=== PATIENT | female | born 1960 | race Caucasian/White ===

== ENCOUNTER 2020-07-07 10:15 | Outpatient (REF) | payer BC, SELFPAY ==
[2020-07-07 11:07] LABS: MANUAL DIFF FLAG NO
[2020-07-07 11:11] LABS: Basophils Absolute Auto 0.1 X10*3/uL (0.0-0.2); Basophils Percent Auto 0.8 % (0-2); Eosinophils Absolute Auto 0.1 X10*3/uL (0.0-0.4); Eosinophils Percent Auto 2.4 % (0-4); Hematocrit 43.8 % (37-47); Hemoglobin 14.8 g/dl (12.0-16.0); Imm Gran Abs Auto 0.01 X10*3/uL (0.00-0.03); Imm Gran Pct Auto 0.2 % (0.0-0.4); Lymphocytes Percent Auto 33.6 % (20-40); Mean Corpuscular HGB Conc 33.8 g/dl (31.0-35.0); Mean Corpuscular Volume 94.8 fL (80-98); Mean Platelet Volume 9.9 fL (9.4-12.3); Monocytes Absolute Auto 0.4 X10*3/uL (0.1-1.2); Monocytes Percent Auto 7.5 % (2-11); Neutrophils Absolute Auto 3.3 X10*3/uL (2.0-8.3); Neutrophils Percent Auto 55.5 % (45-73); Platelet Count 256 X10*3/uL (160-400); Red Blood Count 4.62 X10*6/uL (4.20-5.50); Red Cell Distribution Width 12.2 % (11.0-16.0); White Blood Count 5.9 X10*3/uL (4.8-10.8)
[2020-07-07 11:23] LABS: Alanine Aminotransferase 24 U/L (0-31); Albumin Level 3.9 g/dL (3.5-5.0); Alkaline Phosphatase 69 U/L (39-117); Anion Gap 14 (12-20); Aspartate Amino Transferase 15 U/L (5-31); Bilirubin Total 0.4 mg/dL (0.0-1.0); Blood Urea Nitrogen 21 mg/dL (9-16); Calcium 9.1 mg/dL (8.4-10.2); Carbon Dioxide 29 mmol/L (22-29); Chloride 103 mmol/L (96-108); Cholesterol 192 mg/dL; Estimated Glomerular Filt Rate > 60; Glucose Fasting 98 mg/dL (60-99); HDL Cholesterol 59 mg/dL; LDL Cholesterol Calculated 121 mg/dl; Potassium 4.6 mmol/l (3.3-5.1); Sodium 141 mmol/L (135-145); Total Protein 6.8 g/dL (6.5-8.0); Triglycerides 60 mg/dL
[2020-07-07 11:47] LABS: T4 Thyroxine 6.9 ug/dL (4.5-12.0); Thyroid Stimulating Hormone 2.05 uIU/mL (0.32-4.0); Vitamin D 25-OH Total 41.9 ng/mL (>30)
[2020-07-07 12:07] LABS: Folate 18.2 ng/mL (> or = 4.0); Vitamin B12 587 pg/mL (200-900)
== END 2020-07-07 10:16 | disposition home or self-care (01) ==
LOC: HO.LAB 10:15
PROVIDERS: PCP Internal Medicine; Visit Provider Internal Medicine
DX: Z00.00 Encounter for general adult medical examination without abnormal findings (principal); I10 Essential (primary) hypertension; E66.01 Morbid (severe) obesity due to excess calories; F41.9 Anxiety disorder, unspecified; K21.9 Gastro-esophageal reflux disease without esophagitis
CPT/HCPCS: 36415; 80053; 80061; 82306; 82607; 82746; 84436; 84443; 85025

== ENCOUNTER 2020-08-02 10:44 | Outpatient (REF) | payer BC, SELFPAY ==
--- NOTE | 2020-08-02 | MM_ITS ---
EXAMINATION: MM SCREENING DIGITAL BREAST TOMOSYNTHESIS, BILATERAL CLINICAL INFORMATION: Screening. Asymptomatic. The lifetime risk of breast cancer based on the Tyrer-Cuzick Model is 8%. COMPARISON: Mammography: 07/28/2019, 07/15/2018, 06/18/2017 TECHNIQUE: Digital breast tomosynthesis is performed in both the craniocaudal and mediolateral oblique views along with computer-aided detection (CAD). Synthesized 2D images are generated from the tomosynthesis. Additional right CC and right MLO views are provided. FINDINGS: The breasts are almost entirely fatty (ACR BI-RADS breast composition Category a). There are no significant masses, abnormal calcifications, or other abnormalities. Background stromal densities are stable. The axilla and skin contours are unremarkable. MM/MM tomosynthesis screening BI IMPRESSION: No mammographic evidence of malignancy. ASSESSMENT: BI-RADS 1: Negative RECOMMENDATION: Routine annual mammography screening. This patient's information was entered into a reminder system with a target due date for their next mammogram.
== END 2020-08-02 10:45 | disposition home or self-care (01) ==
LOC: HO.MAMMO 10:44
PROVIDERS: PCP Internal Medicine; Visit Provider Internal Medicine
DX: Z12.31 Encounter for screening mammogram for malignant neoplasm of breast (principal)
CPT/HCPCS: 77063; 77067

== ENCOUNTER 2021-06-05 13:26 | Outpatient (REF) | payer BC, SELFPAY ==
--- NOTE | ~2021-06-05 | XR_ITS ---
EXAMINATION: XR CERVICAL SPINE CLINICAL INFORMATION: Cervical radiculopathy COMPARISON: None TECHNIQUE: 3 views of the cervical spine were obtained. FINDINGS: There is mild anterior subluxation of C4 with respect to C5 measuring 2 mm. Bone alignment is otherwise normal. There is degenerative spondylosis from C4-C5 to C6-C7. There is degenerative disc disease at C5-C6 and C6-C7. Prevertebral soft tissues are normal. XR/XR cervical spine 3V IMPRESSION: Degenerative changes.
== END 2021-06-05 13:27 | disposition home or self-care (01) ==
LOC: HO.HMGCX 13:26
PROVIDERS: PCP Internal Medicine; Visit Provider Internal Medicine
DX: M54.12 Radiculopathy, cervical region (principal)
CPT/HCPCS: 72040

== ENCOUNTER → 2021-06-09 13:09 | Outpatient (BNVA) | payer BC, SELFPAY | PROVIDERS: Visit Provider Advanced Practice Midwife ==

== ENCOUNTER 2021-08-05 08:39 | Outpatient (REF) | payer BC, SELFPAY ==
[2021-08-05 11:26] LABS: MANUAL DIFF FLAG NO
[2021-08-05 11:33] LABS: Basophils Percent Auto 0.2 % (0-2); Eosinophils Absolute Auto 0.2 X10*3/uL (0.0-0.4); Eosinophils Percent Auto 2.4 % (0-4); Hematocrit 38.9 % (37.0-47.0); Hemoglobin 13.1 g/dl (12.0-16.0); Imm Gran Abs Auto 0.03 X10*3/uL (0.00-0.03); Imm Gran Pct Auto 0.3 % (0.0-0.4); Lymphocytes Absolute Auto 1.2 X10*3/uL (1.2-4.9); Lymphocytes Percent Auto 13.6 % (20-40); Mean Corpuscular HGB Conc 33.7 g/dl (31.0-35.0); Mean Corpuscular Hemoglobin 31.8 pg (27.0-33.0); Mean Corpuscular Volume 94.4 fL (80.0-98.0); Mean Platelet Volume 10.2 fL (9.4-12.3); Monocytes Absolute Auto 0.5 X10*3/uL (0.1-1.2); Monocytes Percent Auto 6.2 % (2-11); Neutrophils Absolute Auto 6.6 x10*3/uL (2.0-8.3); Neutrophils Percent Auto 77.3 % (45-73); Platelet Count 257 X10*3/uL (160-400); Red Blood Count 4.12 X10*6/uL (4.20-5.50); Red Cell Distribution Width 12.7 % (11.0-16.0); White Blood Count 8.6 X10*3/uL (4.8-10.8)
[2021-08-05 11:52] LABS: Estimated Average Glucose 117 mg/dL; Hemoglobin A1c % 5.7 %
[2021-08-05 12:15] LABS: Alanine Aminotransferase 23 U/L (0-31); Alkaline Phosphatase 64 U/L (39-117); Anion Gap 14 (12-20); Aspartate Amino Transferase 20 U/L (5-31); Bilirubin Total 0.3 mg/dL (0.0-1.0); Blood Urea Nitrogen 20 mg/dL (9-16); Calcium 9.2 mg/dL (8.4-10.2); Carbon Dioxide 27 mmol/L (22-29); Chloride 103 mmol/L (96-108); Cholesterol 189 mg/dL; Estimated Glomerular Filt Rate 56; Free T4 (Free Thyroxine) 1.01 ng/dL (0.71-1.85); Glucose Random 98 mg/dL (60-115); HDL Cholesterol 56 mg/dL; LDL Cholesterol Calculated 122 mg/dl; Sodium 140 mmol/L (135-145); Thyroid Stimulating Hormone 1.13 uIU/mL (0.32-4.0); Total Protein 7.2 g/dL (6.5-8.0); Triglycerides 58 mg/dL; Vitamin D 25-OH Total 40.2 ng/mL (>30)
[2021-08-05 12:19] LABS: Folate > 20.0 ng/mL (> or = 4.0); Vitamin B12 639 pg/mL (200-900)
== END 2021-08-05 08:40 | disposition home or self-care (01) ==
LOC: HO.HMGCLDS 08:39
PROVIDERS: PCP Internal Medicine; Visit Provider Internal Medicine
DX: R73.01 Impaired fasting glucose (principal); I10 Essential (primary) hypertension; E78.00 Pure hypercholesterolemia, unspecified; K21.9 Gastro-esophageal reflux disease without esophagitis
CPT/HCPCS: 36415; 80053; 80061; 82306; 82607; 82746; 83036; 84439; 84443; 85025

== ENCOUNTER 2021-08-22 07:59 | Outpatient (REF) | payer BC, SELFPAY ==
--- NOTE | ~2021-08-22 | MM_ITS ---
EXAMINATION: MM SCREENING DIGITAL BREAST TOMOSYNTHESIS, BILATERAL CLINICAL INFORMATION: Screening. Asymptomatic. The lifetime risk of breast cancer based on the Tyrer-Cuzick Model is 8%. COMPARISON: Mammography: 08/02/2020, 07/28/2019, 07/15/2018 TECHNIQUE: Digital breast tomosynthesis is performed in both the craniocaudal and mediolateral oblique views along with computer-aided detection (CAD). Synthesized 2D images are generated from the tomosynthesis. Additional bilateral CC views are provided. FINDINGS: The breasts are almost entirely fatty (ACR BI-RADS breast composition Category a). There are no significant masses, abnormal calcifications, or other abnormalities. Background stromal and fibroglandular densities are stable. No developing density or interval architectural changes. The axilla and skin contours are unremarkable. MM/MM tomosynthesis screening BI IMPRESSION: No mammographic evidence of malignancy. ASSESSMENT: BI-RADS 1: Negative RECOMMENDATION: Routine annual mammography screening. This patient's information was entered into a reminder system with a target due date for their next mammogram.
== END 2021-08-22 08:00 | disposition home or self-care (01) ==
LOC: HO.MAMMO 07:59
PROVIDERS: PCP Internal Medicine; Visit Provider Internal Medicine
DX: Z12.31 Encounter for screening mammogram for malignant neoplasm of breast (principal)
CPT/HCPCS: 77063; 77067

== ENCOUNTER 2021-10-21 16:00 | Outpatient (RCR) | payer BC, SELFPAY ==
--- NOTE | 2021-07-07 20:37 | MHC.PT.EP ---
[facility] [place] Office [place] Office [place] Office [address] [phone] F: [phone] F: [phone] F: [phone] F: [phone] Physical Therapy Plan of Care Date of Evaluation: Date of Surgery: Diagnosis: Cervical Radiculopathy Assessment: Pt is a 61 y/o female referred to PT for eval and treat of cervical radiculopathy resulting in decreased tolerance for laying on her L side, looking L, lifting objects of weight from the ground, reading for duration and disturbed sleep secondary to L sided cervical radicular Sx, decreased cervical strength and ROM, increased L sided cervical tissue tension, forward head cervical posture, and pain. Pt is deemed an appropriate candidate to receive skilled PT in order to address her physical limitations to improve her functional ability. Frequency and Duration: The patient will be seen 2 x / wk x 5 wks. Short Term Goals: initiate HEP improve baseline pain to < 4/10, initial 5-7/10 [place] Operator Goals: I with HEP. Full symmetrical cervical ROM Pt will no longer be disturbed of sleep d/t cervical pain. Pt will be able to lift objects of weight from the ground with managed Sx. Treatment Plan: Modalities to reduce pain, spasms and effusion. Manual therapy to restore motion and function. Therapeutic exercise to improve strength and flexibility. Neuromuscular re-education for posture and balance. Therapeutic activities to return to functional activities of daily living. Electronically signed by: Titi Kam PT. Please sign and return to therapist. Thank you for your referral.
--- NOTE | 2021-11-02 12:12 | MHC.PT.DC ---
[facility] [place] Office [place] Office [place] Office [address] [place]a Paulino [address] [phone] F: [phone] F: [phone] F: [phone] F: [phone] Physical Therapy Discharge Report Diagnosis: Cervical Radiculopathy Date of Surgery: Date of Evaluation: 07/07/21 Date of Discharge: 11/02/21 Treatments to Date: 16 Cancellations to Date: No Shows to Date: Discharge Status: Improved Function Independent with HEP Discharge Summary: Stella has been an active participant in her therapy in the clinic and though she persists with some difficulty lifting heavy objects from the floor she has met most of her therapeutic goals, is improved of her pain, I with her home program and in agreement with DC. NDI outcome measure improved from 18% to 6%. Electronically signed by: Titi Kam PT. Please sign and return to therapist. Thank you for your referral.
== END 2021-11-02 12:12 | disposition home or self-care (01) ==
LOC: HO.PTCHIC 16:00
PROVIDERS: PCP Internal Medicine; Visit Provider Internal Medicine
DX: M54.12 Radiculopathy, cervical region (principal)
CPT/HCPCS: 97012; 97014; 97110; 97140; 97161

== ENCOUNTER 2021-10-29 07:20 | Outpatient (REF) | payer BC, SELFPAY ==
--- NOTE | ~2021-10-29 | MR_ITS ---
EXAMINATION: MR CERVICAL SPINE WITHOUT CONTRAST CLINICAL INFORMATION: Left arm radiculopathy. Neck pain. COMPARISON: X-ray dated 06/05/2021. TECHNIQUE: MRI of the cervical spine was obtained using routine sequences without contrast. FINDINGS: VERTEBRAL BODIES AND PARASPINAL SOFT TISSUES: There is a mild reversal of the normal cervical lordosis. Mild anterior subluxation present at the C2-C3, C3-C4, and C4-C5 levels. There are no compression fractures. The paraspinal soft tissues appear normal. The vertebral artery flow-voids are maintained. There is significant disc space narrowing at the C5-C6 and C6-C7 levels where there is a mild retrosubluxation as well. Mild rightward curvature of the cervical spine evident. Mild left lateral endplate edematous changes noted at the C4-C5 level. The lung apices are clear. CERVICOMEDULLARY JUNCTION AND VISUALIZED POSTERIOR FOSSA: The craniovertebral junction and imaged portions of the brain parenchyma appear normal. No cord signal abnormality or syrinx is visible. SPINAL LEVELS: C2-C3: Mild anterolisthesis. No focal disc protrusion or central canal stenosis. Hnrc-ps-xffpbvcd facet arthropathy without foraminal encroachment. C3-C4: Mild anterolisthesis and disc bulge without central canal stenosis. Uolo-fe-eeemxrgr right foraminal narrowing and small posterolateral disc protrusion. C4-C5: Mild anterolisthesis and disc-osteophyte complex with mild central canal stenosis and moderate left foraminal narrowing. Ldvx-vk-ncnxufvu right foraminal encroachment. C5-C6: Disc-osteophyte complex with mild central canal stenosis and significant bilateral foraminal encroachment. C6-C7: Retrosubluxation and broad-based disc-osteophyte complex with mild central canal stenosis and severe foraminal narrowing, worse on the right side. C7-T1: Uncovertebral joint spurring and facet arthropathy with significant right foraminal encroachment. No central canal stenosis. MR/MR cervical spine wo con IMPRESSION: Kiup-bj-immvajva multilevel cervical spondylosis with mild subluxations. Focal right posterolateral disc protrusion at the C3-C4 level with nrnk-ii-nrrjukvy right foraminal encroachment. Mild central canal stenosis and moderate left foraminal narrowing at the C4-C5 level. Mild central canal stenosis and significant bilateral foraminal narrowing at C5-C6. Disc-osteophyte complex with mild central canal stenosis and severe foraminal narrowing at the C6-C7 level. Significant right foraminal encroachment due to osseous spurring at the C7-T1 level.
== END 2021-10-29 07:21 | disposition home or self-care (01) ==
LOC: HO.MRI 07:20
PROVIDERS: PCP Internal Medicine; Visit Provider Internal Medicine
DX: M54.12 Radiculopathy, cervical region (principal)
CPT/HCPCS: 72141

== ENCOUNTER 2022-04-12 13:35 | Outpatient (REF) | payer BC, SELFPAY ==
[2022-04-12 17:10] LABS: Alanine Aminotransferase 22 U/L (0-31); Albumin Level 4.1 g/dL (3.5-5.0); Alkaline Phosphatase 69 U/L (39-117); Anion Gap 15 (12-20); Aspartate Amino Transferase 17 U/L (5-31); Bilirubin Total 0.3 mg/dL (0.0-1.0); Blood Urea Nitrogen 16 mg/dL (9-16); Calcium 9.5 mg/dL (8.4-10.2); Carbon Dioxide 25 mmol/L (22-29); Chloride 101 mmol/L (96-108); Estimated Glomerular Filt Rate > 60; Glucose Random 87 mg/dL (60-115); Potassium 3.6 mmol/L (3.3-5.1); Sodium 137 mmol/L (135-145); Total Protein 6.7 g/dL (6.5-8.0)
[2022-04-12 17:15] LABS: Estimated Average Glucose 108 mg/dL; Hemoglobin A1c % 5.4 %
== END 2022-04-12 13:36 | disposition home or self-care (01) ==
LOC: HO.HMGCLDS 13:35
PROVIDERS: PCP Internal Medicine; Visit Provider Internal Medicine
DX: K21.9 Gastro-esophageal reflux disease without esophagitis (principal)
CPT/HCPCS: 36415; 80053; 83036

== ENCOUNTER 2022-08-05 13:59 | Outpatient (REF) | payer BC, SELFPAY ==
[2022-08-09 23:04] LABS: HPV mRNA E6/E7 rflx Not Detected (Not Detected)
== END 2022-08-05 14:00 | disposition home or self-care (01) ==
LOC: HO.LNP 13:59
PROVIDERS: PCP Internal Medicine; Visit Provider Advanced Practice Midwife
DX: Z01.419 Encounter for gynecological examination (general) (routine) without abnormal findings (principal)
CPT/HCPCS: 87624; 88142

== ENCOUNTER 2022-09-04 09:51 | Outpatient (REF) | payer BC, SELFPAY ==
--- NOTE | ~2022-09-04 | MM_ITS ---
EXAMINATION: MM SCREENING DIGITAL BREAST TOMOSYNTHESIS, BILATERAL CLINICAL INFORMATION: Screening. Asymptomatic. The lifetime risk of breast cancer based on the Tyrer-Cuzick Model is 8%. COMPARISON: Mammography: 08/11/2021, 08/02/2020, 07/28/2019 TECHNIQUE: Digital breast tomosynthesis is performed in both the craniocaudal and mediolateral oblique views along with computer-aided detection (CAD). Synthesized 2D images are generated from the tomosynthesis. Additional right MLO and left CC views are provided. FINDINGS: The breasts are almost entirely fatty (ACR BI-RADS breast composition Category a). There are no significant masses, abnormal calcifications, or other abnormalities. Stromal markings are similar to prior studies and there is no developing density or architectural abnormality. The axilla and skin contours are unremarkable. No significant changes. MM/MM tomosynthesis screening BI IMPRESSION: No mammographic evidence of malignancy. ASSESSMENT: BI-RADS 1: Negative RECOMMENDATION: Routine annual mammography screening. This patient's information was entered into a reminder system with a target due date for their next mammogram.
== END 2022-09-04 09:52 | disposition home or self-care (01) ==
LOC: HO.MAMMO 09:51
PROVIDERS: PCP Internal Medicine; Visit Provider Internal Medicine
DX: Z12.31 Encounter for screening mammogram for malignant neoplasm of breast (principal)
CPT/HCPCS: 77063; 77067

== ENCOUNTER 2023-03-19 09:25 | Outpatient (REF) | payer BC, SELFPAY ==
[2023-03-19 09:45] LABS: MANUAL DIFF FLAG NO
[2023-03-19 10:31] LABS: Basophils Absolute Auto 0.1 X10*3/uL (0.0-0.2); Basophils Percent Auto 0.8 % (0-2); Eosinophils Absolute Auto 0.2 X10*3/uL (0.0-0.4); Eosinophils Percent Auto 2.5 % (0-4); Hematocrit 41.1 % (37.0-47.0); Hemoglobin 14.1 g/dl (12.0-16.0); Imm Gran Abs Auto 0.01 X10*3/uL (0.00-0.03); Imm Gran Pct Auto 0.2 % (0.0-0.4); Lymphocytes Absolute Auto 1.9 X10*3/uL (1.2-4.9); Lymphocytes Percent Auto 32.1 % (20-40); Mean Corpuscular HGB Conc 34.3 g/dl (31.0-35.0); Mean Corpuscular Hemoglobin 32.6 pg (27.0-33.0); Mean Corpuscular Volume 94.9 fL (80.0-98.0); Mean Platelet Volume 9.6 fL (9.4-12.3); Monocytes Absolute Auto 0.5 X10*3/uL (0.1-1.2); Monocytes Percent Auto 8.3 % (2-11); Neutrophils Absolute Auto 3.4 x10*3/uL (2.0-8.3); Neutrophils Percent Auto 56.1 % (45-73); Platelet Count 278 X10*3/uL (160-400); Red Blood Count 4.33 X10*6/uL (4.20-5.50); Red Cell Distribution Width 12.5 % (11.0-16.0)
[2023-03-19 11:22] LABS: Alanine Aminotransferase 17 U/L (0-31); Albumin Level 4.1 g/dL (3.5-5.0); Alkaline Phosphatase 58 U/L (39-117); Anion Gap 12 (12-20); Aspartate Amino Transferase 17 U/L (5-31); Bilirubin Total 0.5 mg/dL (0.0-1.0); Blood Urea Nitrogen 14 mg/dL (9-16); Calcium 9.6 mg/dL (8.4-10.2); Carbon Dioxide 26 mmol/L (22-29); Chloride 105 mmol/L (96-108); Cholesterol 183 mg/dL (<200); Estimated Glomerular Filt Rate > 60; Glucose Random 111 mg/dL (60-115); HDL Cholesterol 61 mg/dL (>40); LDL Cholesterol Calculated 108 mg/dL (<100); Potassium 3.4 mmol/L (3.3-5.1); Sodium 140 mmol/L (135-145); Triglycerides 72 mg/dL (<150)
[2023-03-19 11:39] LABS: Free T4 (Free Thyroxine) 0.93 ng/dL (0.71-1.85); Thyroid Stimulating Hormone 0.59 uIU/mL (0.32-4.0)
[2023-03-19 11:46] LABS: Vitamin B12 893 pg/mL (200-900)
[2023-03-19 12:08] LABS: Estimated Average Glucose 105 mg/dL; Hemoglobin A1c % 5.3 % (<6.0)
== END 2023-03-19 09:26 | disposition home or self-care (01) ==
LOC: HO.LAB 09:25
PROVIDERS: PCP Internal Medicine; Visit Provider Internal Medicine
DX: K21.9 Gastro-esophageal reflux disease without esophagitis (principal); R73.01 Impaired fasting glucose; I10 Essential (primary) hypertension; E78.00 Pure hypercholesterolemia, unspecified; E55.9 Vitamin D deficiency, unspecified
CPT/HCPCS: 36415; 80053; 80061; 82306; 82607; 82746; 83036; 84439; 84443; 85025

== ENCOUNTER 2023-03-21 15:40 | Outpatient (AMB) | payer BC, SELFPAY ==
--- NOTE | 2023-03-21 15:50 | A.OFFPC_ITS ---
Vital Signs 03/21/23 15:52 Height 5 ft 2 in Weight 100.698 kg BMI 40.6 BP 124/76 Blood Pressure Location Lt brachial Position Sitting Pulse 78 Pulse Source Pulse Oximeter Pulse Oximetry (%) 98 Oxygen Delivery Method Room Air Intake Visit Reasons: cologuard pos, HTN Allergies oxycodone [From PERCOCET] Allergy (Unknown, Verified 03/21/23 15:53) DID NOT LIKE THE WAY IT MADE HER FEEL Tobacco use date assessed: 08/02/22 Dental Screening Dental Screen Date: 03/21/23 Did you have a dental visit in the last 12 months?: Yes Did you have a dental problem in the last 6 months where you did not have access to dental care?: No Was dental information given to patient?: Patient has dentist HPI cologuard pos, HTN HPI Details 62-year-old obese female with hypertensi on, impaired glucose tolerance GERD Lyn anxiety disorder last seen in December 2022 concern about the positive colorectal cancer screening test using Cologuard test and was advised to 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 Patient is here for follow-up. Mammograms up-to-date [facility] Medical History (Updated 03/21/23 @ 16:01 by Lise Chaudhry MD) Breast cancer screening by mammogram Colonoscopy refused Colon cancer screening GERD (gastroesophageal reflux disease) Osteoarthritis, knee Allergic rhinitis Skin cancer Impaired fasting glucose Obesity Hypertension Surgical History History of elbow surgery History of cholecystectomy History of tubal ligation Family History (Updated 01/04/23 @ 13:47 by Vicki Gillis CMA) Father Heart disease Hypertension CVD (cardiovascular disease) Mother Hypertension Sister Multiple sclerosis of brain stem Brother S/P CABG x 1 Daughter In good health Social History Housing: House Alcohol intake: current Patient Tobacco Use Status: Never used Tobacco e-Cigarette/Vaping Use: Never Used Second Hand Smoke Exposure: No service: No Current occupational status: employed Cognitive needs: No Hearing needs: No Vision needs: Yes Female Reproductive History Menstrual Age of Menarche: 11 Questionnaire PHQ-9 Over the last 2 weeks, how often have you been bothered by any of the following problems? 1. Little interest or pleasure in doing things: not at all 2. Feeling down, depressed, or hopeless: not at all 3. Trouble falling or staying asleep, or sleeping too much: not at all 4. Feeling tired or having little energy: not at all 5. Poor appetite or overeating: not at all 6. Feeling bad about yourself - or that you are a failure or have let yourself or your family down: not at all 7. Trouble concentrating on things, such as reading the newspaper or watching television: not at all 8. Moving or speaking so slowly that other people could have noticed. Or the opposite - being so fidgety or restless that you have been moving around a lot more than usual: not at all 9. Thoughts that you would be better off or of hurting yourself in some way: not at all Total score: 0 Depression Screening Interpretation: Negative Source: Developed by Drs. Cl Sandoval, Silva Figueroa, Rodolfo Alves and colleagues, with an educational spencer from [employer]. Thrive Questionnaire Date Thrive assessed: 08/02/22 AUDIT C Alcohol Use Questionnaire (AUDIT-C) 1. How often do you have a drink containing alcohol?: Never 3. How often do you have six or more drinks on one occasion?: Never Total Score: 0 ISABELL-7 AMB Questionnaire ISABELL-7 Date ISABELL - 7 assessed: 08/02/22 Source: Developed by Drs. Cl Sandoval, Silva Figueroa, Rodolfo Alves and colleagues, with an educational spencer from [employer]. Physical exam (Primary Care) Vital Signs: Last Vital Signs Pulse 78 03/21/23 15:52 BP 124/76 03/21/23 15:52 Pulse Ox 98 03/21/23 15:52 Oxygen Delivery Method Room Air 03/21/23 15:52 BMI result Body Mass Index 40.6 Tobacco/Smoking Status: Tobacco use Status Tobacco use date assessed 08/02/22 03/21/23 15:51 Patient Tobacco Use Status Never used Tobacco 03/21/23 15:51 e-Cigarette/Vaping Use Never Used 03/21/23 15:51 PHQ-9: PHQ-9 Score PHQ-9: Total score 0 03/21/23 16:02 Depression Screening Interpretation: Negative Thrive Assessment: Date of Thrive Assessment Date Thrive assessed 08/02/22 03/21/23 15:51 Const General: alert; No acute distress Eyes Conjunctivae: conjunctivae normal Resp Auscultation: clear to auscultation bilaterally Cardio Rate: regular rate Rhythm: regular rhythm GI Inspection: Yes normal to inspection Extrem General: Yes normal to inspection and No edema Immunizations tetanus-diphtheria toxoids-Td 2 Lf unit-2 Lf unit/0.5 mL IM suspension Performing Provider: Lise Chaudhry MD [facility] Administered by: Vicki Gillis CMA on 03/21/23 16:18 Dose Route Admin Location Dispensed Lot Number Expiration Date [employer] Super[employer] 0.5 mL IM Left Deltoid 0.5 mL [id number] 11/14/23 [address]-7 [employer] VIS Given Date VIS Provided VIS Publication Date 03/21/23 Single Vaccine 21 Eligibility Eligibility Date Funding Source Not [facility] Eligible 03/21/23 [facility] funds Assessment and Plan Assessment & Plan (1) Hypertension: Code(s): I10 - Essential (primary) hypertension Plan: Continue with blood pressure medication. Decrease salt intake and exercise patient is taking lisinopril hydrochlorothiazide. Discussed the concerns about hypokalemia. (2) Obesity: Code(s): E66.9 - Obesity, unspecified Plan: Diet and exercise (3) Impaired fasting glucose: Code(s): R73.01 - Impaired fasting glucose Plan: Decrease the amount of carbohydrate intake, pasta, bread, rice and potatoes are all sugar and that is aside from all the sweet stuff, remember that fruits are good but they are Sweet also. (4) GERD (gastroesophageal reflux disease): Code(s): K21.9 - Gastro-esophageal reflux disease without esophagitis Plan: Avoid the foods that causes that usually spicy foods, tomato products, juices, coffee, soda and foods that your sensitive to. After eating do not lie down, allow 3-4 hours before in lie down. And keep the head of bed above 30 degrees to avoid the acid from going up. Patient is on famotidine (5) Generalized anxiety disorder: Comment: Panic attacks Code(s): F41.1 - Generalized anxiety disorder Plan: Continue with PT per prior on (6) Positive colorectal cancer screening using Cologuard test: Code(s): R19.5 - Other fecal abnormalities Plan: Reminded patient about colonoscopy Orders: Orders Td State Immunization Today Z23 - Encounter for immunization Referrals Gastroenterology Referral R19.5 - Other fecal abnormalities Medications: Changed From lisinopril 5 mg PO DAILY 90 tabs 3RF I10 - Essential (primary) hypertension To lisinopril 10 mg PO DAILY 30 tabs 3RF I10 - Essential (primary) hypertension Discontinued hydrochlorothiazide Discontinued Reason: Doctor's Order 25 mg PO DAILY 90 tabs 3RF I10 - Essential (primary) hypertension Coding Level of Care Code Est Pt Level 4 (90385) Diagnoses Hypertension I10 Obesity E66.9 Impaired fasting glucose R73.01 GERD (gastroesophageal reflux disease) K21.9 Generalized anxiety disorder F41.1 Positive colorectal cancer screening using Cologuard test R19.5
[2023-03-21 15:52] VITALS: BP 124/76; PULSE 78; O2SAT 98; BMI 40.6
== END 2023-03-21 16:23 | disposition home or self-care (01) ==
PROVIDERS: PCP Internal Medicine; Visit Provider Internal Medicine
DX: I10 Essential (primary) hypertension (principal); E66.9 Obesity, unspecified; K21.9 Gastro-esophageal reflux disease without esophagitis; Z68.41 Body mass index [BMI] 40.0-44.9, adult; Z23 Encounter for immunization; R73.01 Impaired fasting glucose; F41.1 Generalized anxiety disorder; R19.5 Other fecal abnormalities
CPT/HCPCS: 90471; 90714; 99214

== ENCOUNTER 2023-04-01 10:47 | Outpatient (AMB) | payer BC, SELFPAY ==
--- NOTE | 2023-04-01 10:54 | MHC.OFFVIS ---
Intake Vital Signs 04/01/23 10:56 Height 5 ft 2 in Weight 224 lb 13.944 oz BMI 41.1 BP 118/55 L Blood Pressure Location Lt brachial Position Sitting Pulse 71 Intake Visit Reasons: Colonoscopy Screening/+ cologuard Intake Note: Stella presents in the office as a new patient colonoscopy screening. CC: She states that she is not having any GI concerns today. Allergies oxycodone [From PERCOCET] Allergy (Unknown, Verified 04/01/23 10:56) DID NOT LIKE THE WAY IT MADE HER FEEL HPI Colonoscopy Screening/+ cologuard HPI Details 62 year old? female with past medical history of osteoarthritis of left knee, cervical spine stenosis, GERD, obesity, hypertension is here today for pre colonoscopy screening.? Patient was sent to us by her PCP.? ? Patient had colonoscopy in December of 2012. Normal colonoscopy no polyps found. In September of this year patient had Cologuard that came back positive. Send to us by PCP for colonoscopy. Patient denies any gastrointestinal symptoms in the past or at present.? Occasional acid reflux, patient is taking famotidine. Denies any personal or family history of gastrointestinal disease, colon polyps, or cancer.? Denies history of difficulty with sedation or anesthesia in the past.? Negative for history of sleep apnea.? Denies any history of cardiac, renal, pulmonary, or hepatic disease.?? No history of infectious? diseases like hepatitis A, B, C, HIV or tuberculosis.? Patient is not on any anticoagulation therapy. [facility] Medical History Breast cancer screening by mammogram Colonoscopy refused Colon cancer screening GERD (gastroesophageal reflux disease) Osteoarthritis, knee Allergic rhinitis Skin cancer Impaired fasting glucose Obesity Hypertension Surgical History Hx of colonoscopy History of elbow surgery History of cholecystectomy History of tubal ligation Family History Father Heart disease Hypertension CVD (cardiovascular disease) Mother Hypertension Sister Multiple sclerosis of brain stem Brother S/P CABG x 1 Daughter In good health Social History Housing: House Alcohol intake: current Patient Tobacco Use Status: Never used Tobacco e-Cigarette/Vaping Use: Never Used Second Hand Smoke Exposure: No service: No Current occupational status: employed Cognitive needs: No Hearing needs: No Vision needs: Yes Female Reproductive History Menstrual Age of Menarche: 11 Review of Systems Const Denies weight gain and Denies weight loss ENT Reports no additional complaints, Denies dysphagia and Denies odynophagia Card Reports no additional complaints Resp Reports no additional complaints GI Denies abdominal pain, Denies belching, Denies melena, Denies bloating, Denies change in bowel habits, Denies dysphagia, Denies excessive flatus, Denies dyspepsia, Reports heartburn (Occasional), Denies diarrhea, Denies loose stools, Denies nausea, Denies odynophagia and Denies vomiting Reports no additional complaints Musc Reports no additional complaints Neuro Reports no additional complaints Psych Reports no additional complaints Endo Reports no additional complaints Physical Exam Vital Signs: Last Vital Signs Pulse 71 04/01/23 10:56 BP 118/55 L 04/01/23 10:56 BMI result Body Mass Index 41.1 Const General: healthy appearing, no acute distress and well developed Nutritional Appearance: obese Orientation/consciousness: patient oriented x3 HEENT Head: Yes normal to inspection, Yes normocephalic and Yes atraumatic Face and sinus: Yes normal facial exam Mouth: Normal oral and palatal mucosa present Throat: Yes posterior oropharynx normal, Yes tonsils normal and Yes uvula midline Eyes General: appearance normal, both eyes and all related structures Neck Neck: Yes normal visual inspection, Yes full ROM and Yes trachea midline Thyroid: Thyroid normal Resp Effort & Inspection: normal respiratory effort, able to speak in complete sentences, no tracheal deviation and symmetric chest movement Auscultation: clear to auscultation bilaterally Cardio Rate: regular rate Heart sounds: S1 normal heart sound present and S2 normal heart sound present GI Inspection: Yes normal to inspection, No distended and Yes obesity Palpation (GI): Soft to palpation, not firm, nontender and No hepatosplenomegaly present Auscultation: normal bowel sounds General: Yes no CVA tenderness Back/Spine/Pelvis Back: no CVA tenderness Skin General skin exam: elasticity normal, turgor normal and dry skin Neuro General: patient oriented x3 Psych Appearance: grossly normal Mental Status: mental status grossly normal Assessment & Plan Assessment & Plan (1) Positive colorectal cancer screening using Cologuard test: Code(s): R19.5 - Other fecal abnormalities Plan: Patient had positive Cologuard in September. Last colonoscopy in December of 2012 was normal. Patient denies any GI, cardiac or respiratory symptoms.? Occasional acid reflux, however patient is taking famotidine daily and she has no symptoms. Patient does not want to go for upper endoscopy. Denies any issues with anesthesia in the past.? Denies any history of sleep apnea.? No history infectious diseases in the past or present.? Not on any anticoagulation therapy.? No family or personal history of colon cancer or polyps.? Patient denies melena, hematochezia, unintentional weight loss or ribbon like stools.? Discussed at length the pre-procedure,? prep, diet & medications as well as what to expect prior, during and after the procedure.?? Stressed the importance of good bowel prep. ?Recommended the use of Vaseline or Calmoseptine OTC & baby wipes with bowel movements to promote comfort.? ? (2) GERD (gastroesophageal reflux disease): Code(s): K21.9 - Gastro-esophageal reflux disease without esophagitis Qualifiers: Esophagitis presence: esophagitis presence not specified Qualified Code(s): K21.9 - Gastro-esophageal reflux disease without esophagitis Plan: Continue famotidine. Patient was encouraged to avoid dietary triggers and late night snacking. Staying upright for minimum 3 hours after meals discussed with patient. I will see patient after the procedure, sooner on as needed basis. Patient is agreeable to this plan and verbalizes understanding of instructions. She was given the opportunity to ask questions and all questions answered. Thank you for allowing me to participate in her care Medications: New bisacodyl (Dulcolax (bisacodyl)) take 2 tabs at noon the day before your colonoscopy 10 mg (2 x 5 mg) PO ONCE 1 day 2 tabs 0RF Z12.11 - Encounter for screening for malignant neoplasm of colon polyethylene glycol 3350 (Miralax) As directed by gastroenterology department at [facility] 238 grams PO ONCE 238 grams 0RF Z12.11 - Encounter for screening for malignant neoplasm of colon Coding Level of Care Code New Pt Level 3 (25140) Diagnoses Positive colorectal cancer screening using Cologuard test R19.5 Gastroesophageal reflux disease, unspecified whether esophagitis present K21.9 Esophagitis presence: esophagitis presence not specified Time Spent (min) 40 Comment 30 minutes spent with patient and additional 10 minutes spent reviewing her records
[2023-04-01 10:56] VITALS: BP 118/55; PULSE 71; BMI 41.1
== END 2023-04-01 13:09 | disposition home or self-care (01) ==
PROVIDERS: PCP Internal Medicine; Visit Provider Nurse Practitioner Family
DX: R19.5 Other fecal abnormalities (principal); K21.9 Gastro-esophageal reflux disease without esophagitis
CPT/HCPCS: 99203

== ENCOUNTER → 2023-04-01 10:47 | Outpatient (BNVA) | payer BC, SELFPAY | PROVIDERS: PCP Internal Medicine; Visit Provider Nurse Practitioner Family ==

== ENCOUNTER 2023-06-27 15:34 | Outpatient (AMB) | payer BC, SELFPAY ==
[2023-06-27 15:58] VITALS: PULSE 73; RESP 18; TEMP 36.3; O2SAT 95
--- NOTE | 2023-06-27 15:58 | AM.OFFVISNUR ---
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 her main symptom is sore throat. also reports some cough and congestion. she reports symptoms have improved since last week but are still present. symptoms present for about one week and are improving by drinking tea with honey. Patient is in no acute distress and is breathing normally. vitals are stable and she is afebrile. throat is a little red but no exudates and no swelling noted. Results AMB Rapid Strep AMB Rapid Strep Negative Last Edit by Piero Mtz RN on 06/27/23 15:58 negative for Strep Coding
== END 2023-06-27 15:55 | disposition home or self-care (01) ==
PROVIDERS: PCP Internal Medicine; Visit Provider Internal Medicine
DX: J02.9 Acute pharyngitis, unspecified (principal)
CPT/HCPCS: 87880

== ENCOUNTER 2023-06-27 15:57 | Outpatient (REF) | payer BC, SELFPAY ==
[2023-06-27 17:16] LABS: Influenza A PCR NEGATIVE (Negative); Influenza B PCR NEGATIVE (Negative); Resp Syncy Virus RNA Qual PCR NEGATIVE (Negative); SARS COV2 PCR INHOUSE NEGATIVE (Negative)
== END 2023-06-27 15:58 | disposition home or self-care (01) ==
LOC: HO.LAB 15:57
PROVIDERS: PCP Internal Medicine; Visit Provider Internal Medicine
DX: Z11.52 Encounter for screening for COVID-19 (principal); Z20.822 Contact with and (suspected) exposure to COVID-19; J02.9 Acute pharyngitis, unspecified
CPT/HCPCS: 0241U

== ENCOUNTER 2023-07-05 13:23 | Outpatient (AMB) | payer BC, SELFPAY ==
[2023-07-05 13:29] VITALS: BP 130/78; PULSE 64; O2SAT 95; BMI 40.1
--- NOTE | 2023-07-05 13:29 | MHC.PC.OV ---
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 Accompanied by: Self / Same As Patient Allergies oxycodone [From PERCOCET] Allergy (Intermediate, Verified 07/05/23 13:29) DID NOT LIKE THE WAY IT MADE HER FEEL Medication List - Last Reconciled 07/05/23 by Lise Chaudhry MD acetaminophen (Tylenol) PO DAILY PRN bisacodyl (Dulcolax (bisacodyl)) 10 mg (2 x 5 mg) PO ONCE 1 day bupropion HCl (Wellbutrin SR) 100 mg PO DAILY 90 days calcium [id number] rm 133 mg calcium -133 unit-67 mg caps PO famotidine 40 mg PO BEDTIME fexofenadine (Roma Allergy) 180 mg PO DAILY lisinopril 10 mg PO DAILY lysine (L-Lysine) 500 mg PO DAILY multivitamin 1 tab PO DAILY polyethylene glycol 3350 (Miralax) 238 grams PO ONCE tramadol 50 mg PO DAILY 30 days valacyclovir 2,000 mg (2 x 1 gram) PO BID 1 day Tobacco use date assessed: 08/02/22 Dental Screening Dental Screen Date: 07/05/23 Did you have a dental visit in the last 12 months?: Yes Did you have a dental problem in the last 6 months where you did not have access to dental care?: No Was dental information given to patient?: Patient has dentist HPI Hypertension HPI Details 63-year-old obese female with hypertension impaired glucose tolerance GERD generalized anxiety disorder last seen in March 2023. Patient had a positive . Mammograms up-to-date and Paps Cologuard test and was referred to Gastroenterology [facility] Medical History (Updated 07/05/23 @ 14:15 by Lise Chaudhry MD) Generalized anxiety disorder Cervical stenosis of spine Terrien marginal degeneration Colon cancer screening Breast cancer screening by mammogram GERD (gastroesophageal reflux disease) Osteoarthritis, knee Allergic rhinitis Skin cancer Impaired fasting glucose Obesity Hypertension Surgical History Hx of colonoscopy History of elbow surgery History of cholecystectomy History of tubal ligation Family History Father Heart disease Hypertension CVD (cardiovascular disease) Mother Hypertension Sister Multiple sclerosis of brain stem Brother S/P CABG x 1 Daughter In good health Social History Housing: House Alcohol intake: current Patient Tobacco Use Status: Never used Tobacco e-Cigarette/Vaping Use: Never Used Second Hand Smoke Exposure: No service: No Current occupational status: employed Cognitive needs: No Hearing needs: No Vision needs: Yes Female Reproductive History Menstrual Age of Menarche: 11 Questionnaire Thrive Questionnaire Date Thrive assessed: 07/05/23 I am a: Patient What is your living situation today?: I have a steady place to live Within the past 12 months, did the food you bought not last and you didn't have the money to get more?: Never true Within the past 12 months, did you worry whether your food would run out before you got money to buy more?: Never true Do you have trouble paying for medicines?: No Do you have trouble getting transportation to medical appointments?: No Do you have trouble paying your heating and electricity bill?: No Do you have trouble taking care of your child, family member or friend?: No Do you have trouble with day-to-day activities such as bathing, preparing meals, shopping, managing finances, etc.?: No Are you currently unemployed and looking for a job?: No Are you interested in more education?: No Please select the resources that you would like help with: None Currently or been in a relationship where the following occur: no concerns reported ISABELL-7 AMB Questionnaire ISABELL-7 Date ISABELL - 7 assessed: 08/02/22 Source: Developed by Drs. Cl Sandoval, Silva Figueroa, Rodolfo Alves and colleagues, with an educational spencer from [employer]. Physical exam (Primary Care) Vital Signs: Last Vital Signs Pulse 64 07/05/23 13:29 BP 130/78 07/05/23 13:29 Pulse Ox 95 07/05/23 13:29 Oxygen Delivery Method Room Air 07/05/23 13:29 BMI result Body Mass Index 40.1 Tobacco/Smoking Status: Tobacco use Status Tobacco use date assessed 08/02/22 07/05/23 13:36 Patient Tobacco Use Status Never used Tobacco 07/05/23 13:36 e-Cigarette/Vaping Use Never Used 07/05/23 13:36 Thrive Assessment: Date of Thrive Assessment Date Thrive assessed 07/05/23 07/05/23 13:36 Currently or been in a relationship where the following occur: no concerns reported Const General: alert; No acute distress Eyes Conjunctivae: conjunctivae normal Resp Auscultation: clear to auscultation bilaterally Cardio Rate: regular rate Rhythm: regular rhythm GI Inspection: Yes normal to inspection Extrem General: Yes normal to inspection and No edema Assessment and Plan Assessment & Plan (1) Positive colorectal cancer screening using Cologuard test: Code(s): R19.5 - Other fecal abnormalities Plan: Colonoscopy scheduled 07/06/2023 (2) Obesity: Code(s): E66.9 - Obesity, unspecified Plan: Diet and exercise (3) Hypertension: Code(s): I10 - Essential (primary) hypertension Plan: Continue with blood pressure medication. Decrease salt intake and exercise patient is on lisinopril 10 mg once a day (4) Impaired fasting glucose: Code(s): R73.01 - Impaired fasting glucose Plan: Decrease the amount of carbohydrate intake, pasta, bread, rice and potatoes are all sugar and that is aside from all the sweet stuff, remember that fruits are good but they are Sweet also. (5) GERD (gastroesophageal reflux disease): Code(s): K21.9 - Gastro-esophageal reflux disease without esophagitis Qualifiers: Esophagitis presence: esophagitis presence not specified Qualified Code(s): K21.9 - Gastro-esophageal reflux disease without esophagitis Plan: Avoid the foods that causes that usually spicy foods, tomato products, juices, coffee, soda and foods that your sensitive to. After eating do not lie down, allow 3-4 hours before in lie down. And keep the head of bed above 30 degrees to avoid the acid from going up. On famotidine 40 mg at bedtime (6) Generalized anxiety disorder: Comment: Panic attacks Code(s): F41.1 - Generalized anxiety disorder Plan: Continue with present medication (7) Recurrent cold sores: Code(s): B00.1 - Herpesviral vesicular dermatitis Medications: New valacyclovir 2,000 mg (2 x 1 gram) PO BID 4 tabs 4RF 1 day B00.1 - Herpesviral vesicular dermatitis Coding Level of Care Code Est Pt Level 4 (82477) Diagnoses Positive colorectal cancer screening using Cologuard test R19.5 Obesity E66.9 Hypertension I10 Impaired fasting glucose R73.01 Gastroesophageal reflux disease, unspecified whether esophagitis present K21.9 Esophagitis presence: esophagitis presence not specified Generalized anxiety disorder F41.1 Recurrent cold sores B00.1
== END 2023-07-05 14:21 | disposition home or self-care (01) ==
PROVIDERS: PCP Internal Medicine; Visit Provider Internal Medicine
DX: I10 Essential (primary) hypertension (principal); E66.9 Obesity, unspecified; Z68.41 Body mass index [BMI] 40.0-44.9, adult; R73.01 Impaired fasting glucose; R19.5 Other fecal abnormalities; K21.9 Gastro-esophageal reflux disease without esophagitis; F41.1 Generalized anxiety disorder; B00.1 Herpesviral vesicular dermatitis
CPT/HCPCS: 99214

== ENCOUNTER 2023-07-06 07:21 | Day surgery (SDC) | payer BC, SELFPAY ==
[2023-07-01 13:42] VITALS: BMI 41.1
[2023-07-06 07:43] VITALS: BP 123/66; PULSE 75; RESP 16; TEMP 36.7; O2SAT 97; BMI 39.9
[2023-07-06] MEDS: Lactated Ringers 1,000 ML 80 ML IVCONT (08:16)
--- NOTE | 2023-07-06 08:22 | HO.ANESPROP2 ---
HPI - Anesthesia Eval Consult details Narrative: colonoscopy PMF Active Problems Active Problems: All Active Problems (Updated 07/05/23 @ 14:15 by Lise Chaudhry MD) Recurrent cold sores (Acute) Sore throat (Acute) Terrien's marginal degeneration (Acute) Positive colorectal cancer screening using Cologuard test (Acute) Osteoarthritis of left knee (Acute) Cervical spinal stenosis (Acute) Bunion of great toe of left foot (Acute) Knee pain, left (Acute) Annual physical exam (Acute) Generalized anxiety disorder (Acute) COVID-19 virus infection (Acute) GERD (gastroesophageal reflux disease) (Acute) Impaired fasting glucose (Acute) Obesity (Acute) Hypertension (Acute) Past Medical History Medical History (Updated 07/05/23 @ 14:15 by Lise Chaudhry MD) Generalized anxiety disorder Cervical stenosis of spine Terrien marginal degeneration Colon cancer screening Breast cancer screening by mammogram GERD (gastroesophageal reflux disease) Osteoarthritis, knee Allergic rhinitis Skin cancer Impaired fasting glucose Obesity Hypertension Family History Family History Father Heart disease Hypertension CVD (cardiovascular disease) Mother Hypertension Sister Multiple sclerosis of brain stem Brother S/P CABG x 1 Daughter In good health Family history of problems with anesthesia: No Surgical History Surgical History Hx of colonoscopy History of elbow surgery History of cholecystectomy History of tubal ligation History of Problems with Anesthesia: No Social History Social History Housing: House Alcohol intake: current Alcohol intake frequency: holidays/special occasions only Patient Tobacco Use Status: Never used Tobacco e-Cigarette/Vaping Use: Never Used Second Hand Smoke Exposure: No Use of substances other than those prescribed or required for medical reasons: No Are you DNR?: No Advance Directives: No Advance Directives Information Provided: Yes service: No Current occupational status: employed Cognitive needs: No Hearing needs: No Vision needs: Yes Meds Allergies Allergy/AdvReac Type Severity Reaction Status Date / Time oxycodone [From PERCOCET] Allergy Intermediate DID NOT Verified 07/06/23 07:41 LIKE THE WAY IT MADE HER FEEL Active Medications: Current Medications Lactated Ringer's (Lr) 1,000 mls @ 80 mls/hr IVCONT .[id number] [facility] Last Admin: 07/06/23 08:16 Dose: 80 mls/hr Home Medications Medication Instructions Recorded Confirmed Last Taken Type fexofenadine 180 mg tablet 180 mg PO DAILY 07/10/20 07/06/23 Unknown History (Roma Allergy) acetaminophen [Tylenol] PO DAILY PRN Pain 03/19/21 07/05/23 Unknown History calcium carb 133 mg-vitD3 133 cap PO 06/09/21 07/05/23 Unknown History unit-mag amino acid chelate 67mg capsule lysine 500 mg tablet (L-Lysine) 500 mg PO DAILY 06/09/21 07/06/23 Unknown History multivitamin 1 tab PO DAILY 06/09/21 07/06/23 Unknown History Exam Height,Weight and Vital Signs: Height 5 ft 2 in Weight 99.065 kg Last Vital Signs Temp 98.0 F 07/06/23 07:43 Pulse 75 07/06/23 07:43 Resp 16 07/06/23 07:43 BP 123/66 07/06/23 07:43 Pulse Ox 97 07/06/23 07:43 O2 Del Method Room Air 07/06/23 07:43 Airway Mallampati Class: II TM Dist: >3cm Neck ROM: Limited Heart: rrr Lungs: cta Assessment and Plan Assessment Anesthesia Assessment: Anesthesia Plan Discussed Final Anesthetic Review Family History of Problems with Anesthesia: No History of Problems with Anesthesia: No NPO: Yes ASA Class: III Final Preanesthetic Review: No Changes in Pt Med Stat, Meds/Allgs Chart Reviewed, Consent Obtained/Reviewed and Anes Risks/Benef Reviewed Patient Risk: Intermediate Procedure Risk: Low Anesthetic Plan Anesthetic Plan: MAC: and Agree w/ Assess. and Plan Disposition: Standard PACU
--- NOTE | 2023-07-06 09:25 | MHC.SHP ---
Pre-Procedural Eval Section A Date of Service: 07/06/23 Section B Chief Complaint: pos cologuard Relevant Family History (Specify if Yes): No Relevant Social History: None Present Medications: see Short Stay Collaborative assessment Medical History: Significant History (Generalized anxiety disorder Cervical stenosis of spine Terrien marginal degeneration Colon cancer screening Breast cancer screening by mammogram GERD (gastroesophageal reflux disease) Osteoarthritis, knee Allergic rhinitis Skin cancer Impaired fasting glucose Obesity Hypertension) History of Previous Operations: Relevant previous surgery/procedure and date(s) ( Hx of colonoscopy History of elbow surgery History of cholecystectomy History of tubal ligation) Allergies: Allergies Allergy/AdvReac Type Severity Reaction Status Date / Time oxycodone [From PERCOCET] Allergy Intermediate DID NOT Verified 07/06/23 07:41 LIKE THE WAY IT MADE HER FEEL Review of Systems Sugical H&P ROS: Negative: Constitution, Cardiovascular, Respiratory, Neurological, Psychiatric, Hem-Onc, Allergic/Immunologic, Gastrointestinal, Genitourinary, Musculoskeletal, Integumentary, Endocrine and Eyes/Ears/Nose/Throat Exam Surgical H&P Exam: Normal: HEENT, Normal: Heart, Normal: Lungs, Normal: Extremities, Normal: Abdomen, Normal: Skin and Normal: Neurological Plan Diagnosis/Plan: Unchanged I have reviewed the history and physical and performed a pertinent physical examination on my patient. No changes have occurred unless specified. Time Spent With Patient Time: Total time managing care of this patient today ____ minutes.
--- NOTE | 2023-07-06 09:52 | W.PM.OPN ---
Operative Note Operative Note Date of Service: 07/06/23 Narrative: Operative Information Procedure Description: Colonoscopy Indication: pos cologuard Anesthesia: MAC COLONOSCOPY Instrument: Olympus variable stiffness ADULT scope 190L Colonoscopy Monitoring: Vital signs and clinical assessment, continuous EKG monitoring, Pulse oximetry, Carbon Dioxide monitoring and blood pressure monitoring were done throughout the procedure. Colon withdrawal time was 6 minutes. Procedure: The patient was placed in the left lateral decubitis position and pre-procedure medications were administered. After a digital rectal examination of the ano-rectum, the video colonoscope was inserted into the rectum and advanced through the colon to the cecum/TI. The colonoscope was slowly withdrawn in a retrograde panoramic fashion and the colon mucosa was carefully examined including a retroflexed view of the rectum. Findings and interventions are described below. Procedure Difficulty: easy Findings: Terminal Ileum-normal Right sided retroflexion- normal Cecum:normal Ascending Colon: normal Transverse Colon -normal Descending Colon:normal Sigmoid Colon: normal Rectum: Retroflexion with small internal hemorrhoids, grade I Anorectum - normal Colon preparation: [place]itus Bowel Preparation Scale Right colon; 3 Transverse colon: 3 Left colon; 3 (0 = Unprepared colon segment with mucosa not seen due to solid stool that cannot be cleared. 1 = Portion of mucosa of the colon segment seen, but other areas of the colon segment not well seen due to staining, residual stool and/or opaque liquid. 2 = Minor amount of residual staining, small fragments of stool and/or opaque liquid, but mucosa of colon segment seen well. 3 = Entire mucosa of colon segment seen well with no residual staining, small fragments of stool or opaque liquid) Impression and Post Procedure Diagnosis: internal hemorrhoids Plan: High fiber diet leaflet Avoid straining at stool, epsom salts and sitz bath, anusol supps or cream Repeat Colonoscopy in 10 years or earlier if clinically indicated Above findings were reviewed with the patient and relevant handouts were provided if indicated.
[2023-07-06 09:57] VITALS: BP 98/62; PULSE 74; RESP 16; TEMP 36.7; O2SAT 96
[2023-07-06 10:12] VITALS: BP 116/76; PULSE 72; RESP 14; O2SAT 97
[2023-07-06 10:27] VITALS: BP 132/81; PULSE 73; RESP 15; TEMP 36.3; O2SAT 99
== END 2023-07-06 10:36 | disposition home or self-care (01) ==
PROVIDERS: PCP Internal Medicine; Visit Provider Internal Medicine Gastroenterology
PROC: 0DJD8ZZ Inspection of Lower Intestinal Tract, Via Natural or Artificial Opening Endoscopic (ICD-10-PCS; CPT 45378; principal; 2023-07-06 10:30)
DX: R19.5 Other fecal abnormalities (principal); K64.0 First degree hemorrhoids; K21.9 Gastro-esophageal reflux disease without esophagitis; I10 Essential (primary) hypertension; E66.9 Obesity, unspecified; Z68.41 Body mass index [BMI] 40.0-44.9, adult; J30.9 Allergic rhinitis, unspecified; R73.01 Impaired fasting glucose; Z79.899 Other long term (current) drug therapy; Z88.5 Allergy status to narcotic agent; Z85.828 Personal history of other malignant neoplasm of skin; Z90.49 Acquired absence of other specified parts of digestive tract
CPT/HCPCS: 45378; J2704

== ENCOUNTER → 2023-07-06 07:21 | Outpatient (BNV) | payer BC, SELFPAY | PROVIDERS: PCP Internal Medicine; Visit Provider Internal Medicine Gastroenterology | DX: Z12.11 Encounter for screening for malignant neoplasm of colon (principal); R19.5 Other fecal abnormalities; K64.8 Other hemorrhoids | CPT/HCPCS: 45378 ==

== ENCOUNTER 2023-07-18 15:06 | Outpatient (AMB) | payer BC, SELFPAY ==
--- NOTE | 2023-07-18 15:09 | A.OFFVIS_ITS ---
Intake Vital Signs 07/18/23 15:12 Height 5 ft 2 in Weight 218 lb BMI 39.9 BP 114/69 Blood Pressure Location Lt brachial Position Sitting Pulse 72 Intake Visit Reasons: s/p Colon Ruiz Intake Note: Stella presents in the office as a colonoscopy follow up. CC: She states that she is just here for results to her procedure. Allergies oxycodone [From PERCOCET] Allergy (Intermediate, Verified 07/18/23 15:11) DID NOT LIKE THE WAY IT MADE HER FEEL HPI s/p Colon Ruiz HPI Details LAST VISIT: Positive colorectal cancer screening using Cologuard test Patient had positive Cologuard in September. Last colonoscopy in December of 2012 was normal. Patient denies any GI, cardiac or respiratory symptoms.? Occasional acid reflux, however patient is taking famotidine daily and she has no symptoms. Patient does not want to go for upper endoscopy. Denies any issues with anesthesia in the past.? Denies any history of sleep apnea.? No history infectious diseases in the past or present.? Not on any anticoagulation therapy.? No family or personal history of colon cancer or polyps.? Patient denies melena, hematochezia, unintentional weight loss or ribbon like stools.? Discussed at length the pre-procedure,? prep, diet & medications as well as what to expect prior, during and after the procedure.?? Stressed the importance of good bowel prep. ?Recommended the use of Vaseline or Calmoseptine OTC & baby wipes with bowel movements to promote comfort.? ? GERD (gastroesophageal reflux disease) Continue famotidine. Patient was encouraged to avoid dietary triggers and late night snacking. Staying upright for minimum 3 hours after meals discussed with patient. I will see patient after the procedure, sooner on as needed basis. Patient is agreeable to this plan and verbalizes understanding of instructions. She was given the opportunity to ask questions and all questions answered. ? Thank you for allowing me to participate in her care Plan Medications New bisacodyl (Dulcolax (bisacodyl)) take 2 tabs at noon the day before your colonoscopy 10 mg (2 x 5 mg) PO ONCE 1 day 2 tabs 0R F Z12.11 polyethylene glycol 3350 (Miralax) As directed by gastroenterology department at [facility] 238 grams PO ONCE 238 grams 0RF Z12.11 COLONOSCOPY: Findings: Terminal Ileum-normal Right sided retroflexion- normal Cecum:normal Ascending Colon: normal Transverse Colon -normal Descending Colon:normal Sigmoid Colon: normal Rectum: Retroflexion with small internal hemorrhoids, grade I Anorectum - normal Colon preparation: [place] Bowel Preparation Scale Right colon; 3 Transverse colon: 3 Left colon; 3 (0 = Unprepared colon segment with mucos a not seen due to solid stool that cannot be cleared. 1 = Portion of mucosa of the colon segme nt seen, but other areas of the colon segment not well seen due to staining, residual stool and/or opaque liquid. 2 = Minor amount of residual staining, s mall fragments of stool and/or opaque liquid, but mucosa of colon segment seen well. 3 = Entire mucosa of colon segment seen well with no residual staining, small fragments of stool or opaque liquid) Impression and Post Procedure Diagnosis: internal hemorrhoids Plan: High fiber diet leaflet Avoid straining at stool, epsom salts and sitz bath, anusol supps or cream Repeat Colonoscopy in 10 years or earlier if clinically indicated TODAY'S VISIT Patient is here today for follow-up and to discuss colonoscopy results. Patient denies any ill effects from the prep, anesthesia or procedure itself. Patient reports that she has been feeling well, denies any melena, hematochezia, unintentional weight loss or ribbon like stools. Patient denies any dyspepsia, dysphagia or odynophagia. Patient admits that occasionally when she has cream cheese she will have loose stools. Otherwise patient denies any GI concerning symptoms. Colonoscopy results discussed with patient. Patient had no polyps, small internal hemorrhoids found. Normal colon otherwise. Recommendation was to repeat colonoscopy in 10 years, sooner if clinically necessary. [facility] Medical History Generalized anxiety disorder Cervical stenosis of spine Terrien marginal degeneration Colon cancer screening Breast cancer screening by mammogram GERD (gastroesophageal reflux disease) Osteoarthritis, knee Allergic rhinitis Skin cancer Impaired fasting glucose Obesity Hypertension Surgical History Hx of colonoscopy History of elbow surgery History of cholecystectomy History of tubal ligation Family History Father Heart disease Hypertension CVD (cardiovascular disease) Mother Hypertension Sister Multiple sclerosis of brain stem Brother S/P CABG x 1 Daughter In good health Social History Housing: House Alcohol intake: current Alcohol intake frequency: holidays/special occasions only Patient Tobacco Use Status: Never used Tobacco e-Cigarette/Vaping Use: Never Used Second Hand Smoke Exposure: No service: No Current occupational status: employed Cognitive needs: No Hearing needs: No Vision needs: Yes Female Reproductive History Menstrual Age of Menarche: 11 Review of Systems Const Denies weight gain and Denies weight loss ENT Reports no additional complaints, Denies dysphagia and Denies odynophagia Card Reports no additional complaints Resp Reports no additional complaints GI Denies abdominal pain, Denies belching, Denies melena, Denies bloating, Denies change in bowel habits, Denies dysphagia, Denies excessive flatus, Denies dyspepsia, Denies heartburn, Denies diarrhea, Reports loose stools (occasional), Denies nausea, Denies odynophagia and Denies vomiting Reports no additional complaints Musc Reports no additional complaints Neuro Reports no additional complaints Psych Reports no additional complaints Endo Reports no additional complaints Physical Exam Vital Signs: Last Vital Signs Pulse 72 07/18/23 15:12 BP 114/69 07/18/23 15:12 BMI result Body Mass Index 39.9 Const General: healthy appearing, no acute distress and well developed Nutritional Appearance: obese Orientation/consciousness: patient oriented x3 HEENT Head: Yes normal to inspection, Yes normocephalic and Yes atraumatic Face and sinus: Yes normal facial exam Mouth: Normal oral and palatal mucosa present Throat: Yes posterior oropharynx normal, Yes tonsils normal and Yes uvula midline Eyes General: appearance normal, both eyes and all related structures Neck Neck: Yes normal visual inspection, Yes full ROM and Yes trachea midline Thyroid: Thyroid normal Resp Effort & Inspection: normal respiratory effort, able to speak in complete sentences, no tracheal deviation and symmetric chest movement Auscultation: clear to auscultation bilaterally Cardio Rate: regular rate GI Inspection: Yes normal to inspection, No distended and Yes obesity Palpation (GI): Soft to palpation, not firm, nontender and No hepatosplenomegaly present Auscultation: normal bowel sounds General: Yes no CVA tenderness Back/Spine/Pelvis Back: no CVA tenderness Skin General skin exam: elasticity normal, turgor normal and dry skin Neuro General: patient oriented x3 Psych Appearance: grossly normal Mental Status: mental status grossly normal Assessment & Plan Assessment & Plan (1) Status post colonoscopy: Code(s): Z98.890 - Other specified postprocedural states (2) Postprandial diarrhea: Code(s): K52.9 - Noninfective gastroenteritis and colitis, unspecified Plan Normal colonoscopy, repeat surveillance in 10 years, sooner if clinically necessary. Patient will follow-up in our office on as needed basis. She is agreeable to this plan and verbalizes understanding of instructions. She was given the opportunity to ask questions and all questions answered. Thank you for allowing me to participate in her care Coding Level of Care Code Est Pt Level 3 (95052) Diagnoses Status post colonoscopy Z98.890 Postprandial diarrhea K52.9 Time Spent (min) 25 Comment 15 minutes spent with patient and additional 10 minutes spent reviewing her record
[2023-07-18 15:12] VITALS: BP 114/69; PULSE 72; BMI 39.9
== END 2023-07-18 15:55 | disposition home or self-care (01) ==
PROVIDERS: PCP Internal Medicine; Visit Provider Nurse Practitioner Family
DX: Z98.890 Other specified postprocedural states (principal); K52.9 Noninfective gastroenteritis and colitis, unspecified
CPT/HCPCS: 99213

== ENCOUNTER → 2023-07-18 15:06 | Outpatient (BNVA) | payer BC, SELFPAY | PROVIDERS: PCP Internal Medicine; Visit Provider Nurse Practitioner Family ==

== ENCOUNTER 2023-08-04 16:08 | Outpatient (AMB) | payer BC, SELFPAY ==
[2023-08-04 16:16] VITALS: BP 130/80; PULSE 66; O2SAT 99; BMI 40.6
--- NOTE | 2023-08-04 16:16 | A.OFFPC_ITS ---
Vital Signs 08/04/23 16:16 Height 5 ft 2 in Weight 222 lb 0.2 oz BMI 40.6 BP 130/80 Blood Pressure Location Lt brachial Position Sitting Pulse 66 Pulse Source Pulse Oximeter Pulse Oximetry (%) 99 Oxygen Delivery Method Room Air Intake Visit Reasons: pe Allergies oxycodone [From PERCOCET] Allergy (Intermediate, Verified 08/04/23 16:18) DID NOT LIKE THE WAY IT MADE HER FEEL Medication List - Last Reconciled 08/04/23 by Lise Chaudhry MD acetaminophen (Tylenol) PO DAILY PRN bupropion HCl (Wellbutrin SR) 100 mg PO DAILY 90 days calcium [id number] rm 133 mg calcium -133 unit-67 mg caps PO famotidine 40 mg PO BEDTIME fexofenadine (Roma Allergy) 180 mg PO DAILY lisinopril 10 mg PO DAILY lysine (L-Lysine) 500 mg PO DAILY multivitamin 1 tab PO DAILY tramadol 50 mg PO DAILY 30 days valacyclovir 500 mg PO BID 3 days Tobacco use date assessed: 08/04/23 Dental Screening Dental Screen Date: 08/04/23 Did you have a dental visit in the last 12 months?: Yes Did you have a dental problem in the last 6 months where you did not have access to dental care?: No Was dental information given to patient?: Patient has dentist HPI pe HPI Details 63-year-old morbidly obese female with h ypertension impaired glucose tolerance GERD generalized anxiety disorder last seen in June 2023. Patient has a positive Cologuard test and was sent to gastroenterology for colonoscopy. Mammogram is up-to-date Pap smear up-to-date. Postprocedure internal hemorrhoids and 10 years. cannot take cream cheese but may be lactose deficient. [facility] Medical History (Updated 08/04/23 @ 16:50 by Lise Chaudhry MD) Sore throat Positive colorectal cancer screening using Cologuard test Knee pain, left Generalized anxiety disorder Cervical stenosis of spine Terrien marginal degeneration Colon cancer screening Breast cancer screening by mammogram GERD (gastroesophageal reflux disease) Osteoarthritis, knee Allergic rhinitis Skin cancer Impaired fasting glucose Obesity Hypertension Surgical History Hx of colonoscopy History of elbow surgery History of cholecystectomy History of tubal ligation Family History Father Heart disease Hypertension CVD (cardiovascular disease) Mother Hypertension Sister Multiple sclerosis of brain stem Brother S/P CABG x 1 Daughter In good health Social History (Updated 08/04/23 @ 16:52 by Lise Chaudhry MD) Housing: House Alcohol intake: current Alcohol intake frequency: holidays/special occasions only Comment: once a month2 glasses Patient Tobacco Use Status: Never used Tobacco e-Cigarette/Vaping Use: Never Used Second Hand Smoke Exposure: No service: No Current occupational status: employed Cognitive needs: No Hearing needs: No Vision needs: Yes Female Reproductive History Menstrual Age of Menarche: 11 Questionnaire PHQ-9 Over the last 2 weeks, how often have you been bothered by any of the following problems? 1. Little interest or pleasure in doing things: not at all 2. Feeling down, depressed, or hopeless: not at all 3. Trouble falling or staying asleep, or sleeping too much: not at all 4. Feeling tired or having little energy: not at all 5. Poor appetite or overeating: not at all 6. Feeling bad about yourself - or that you are a failure or have let yourself or your family down: not at all 7. Trouble concentrating on things, such as reading the newspaper or watching television: not at all 8. Moving or speaking so slowly that other people could have noticed. Or the opposite - being so fidgety or restless that you have been moving around a lot more than usual: not at all 9. Thoughts that you would be better off or of hurting yourself in some way: not at all Total score: 0 Depression Screening Interpretation: Negative Depression Screening Done: Yes Source: Developed by Drs. Cl Sandoval, Silva Figueroa, Rodolfo Alves and colleagues, with an educational spencer from [employer]. Thrive Questionnaire Date Thrive assessed: 07/05/23 AUDIT C Alcohol Use Questionnaire (AUDIT-C) 1. How often do you have a drink containing alcohol?: Never 3. How often do you have six or more drinks on one occasion?: Never Total Score: 0 ISABELL-7 AMB Questionnaire ISABELL-7 Date ISABELL - 7 assessed: 08/04/23 Feeling nervous, anxious, or on edge: 0 = Not at all Not being able to stop or control worryin = Not at all Worrying too much about different things: 0 = Not at all Trouble relaxin = Not at all Being so restless that it is hard to sit still: 0 = Not at all Becoming easily annoyed or irritable: 0 = Not at all Feeling afraid as if something awful might happen: 0 = Not at all Total ISABELL-7 score (0-4 normal; 5-9 mild; 10-14 moderate; 15-21 severe): 0 Source: Developed by Drs. Cl Sandoval, Silva Figueroa, Rodolfo Alves and colleagues, with an educational spencer from [employer]. Review of Systems Const Denies poor appetite and Denies weakness Eyes Denies no additional complaints ENT Reports Normal hearing present, Denies dizziness, Denies nasal congestion, Denies tinnitus and Denies sore throat Card Denies chest pain, Denies syncope, Denies rapid heart rate and Denies dyspnea Resp Denies cough and Denies dyspnea GI Denies change in stool character, Reports constipation, Denies diarrhea, Denies nausea and Denies vomiting Denies urinary frequency, Denies difficulty voiding and Denies dysuria Neuro Reports Normal hearing present, Denies confusion, Denies dizziness, Denies syncope and Denies weakness Psych Denies confusion Physical exam (Primary Care) Vital Signs: Last Vital Signs Pulse 66 08/04/23 16:16 BP 130/80 08/04/23 16:16 Pulse Ox 99 08/04/23 16:16 Oxygen Delivery Method Room Air 08/04/23 16:16 BMI result Body Mass Index 40.6 Tobacco/Smoking Status: Tobacco use Status Tobacco use date assessed 08/04/23 08/04/23 16:20 Patient Tobacco Use Status Never used Tobacco 08/04/23 16:20 e-Cigarette/Vaping Use Never Used 08/04/23 16:20 PHQ-9: PHQ-9 Score PHQ-9: Total score 0 08/04/23 16:20 Depression Screening Interpretation: Negative Thrive Assessment: Date of Thrive Assessment Date Thrive assessed 07/05/23 08/04/23 16:20 Const General: No confusion Orientation/consciousness: No confusion HENMT Head: Yes normocephalic Ears: external ears normal and TM's normal bilaterally Face and sinus: Yes normal facial exam Mouth: moist mucous membranes Throat: Yes tonsils normal Eyes Conjunctivae: conjunctivae normal Pupils: Equal, round and reactive pupils present and Pupil accommodation reflex normal Direct Ophthalmoscopy: normal light reflex Neck Neck: No lymphadenopathy Thyroid: Thyroid normal Chest Chest palpation & inspection: normal inspection of the chest Resp Effort & Inspection: normal respiratory effort and no audible wheezes Auscultation: clear to auscultation bilaterally, no crackles, no wheezes and lung sounds not diminished Cardio Rate: regular rate Rhythm: regular rhythm Peripheral pulses: radial pulses present and dorsalis pedis present GI Palpation (GI): no masses Auscultation: normal bowel sounds and normoactive bowel sounds Rectal Exam - Female: deferred Skin General skin exam: no rashes or lesions noted Rashes: no rashes Neuro General: No confusion Cranial nerves: Yes Equal, round and reactive pupils present and Yes Normal hearing present Cognition (Neuro): normal cognition Gait exam (Neuro): Normal gait present Motor exam (neuro): 5/5 motor strength present throughout Deep tendon reflexes (DTR's): Right brachioradialis reflex intensity grade: 2+, Left brachioradialis reflex intensity grade: 2+, Right patellar reflex intensity grade: 2+ and Left patellar reflex intensity grade: 2+ Extrem General: No edema Assessment and Plan Assessment & Plan (1) Annual physical exam: Code(s): Z00.00 - Encounter for general adult medical examination without abnormal findings (2) Obesity: Code(s): E66.9 - Obesity, unspecified Plan: Diet and exercise (3) Hypertension: Code(s): I10 - Essential (primary) hypertension Plan: Continue with blood pressure medication. Decrease salt intake and exercise presently on lisinopril 10 mg once a day (4) Impaired fasting glucose: Code(s): R73.01 - Impaired fasting glucose Plan: Decrease the amount of carbohydrate intake, pasta, bread, rice and potatoes are all sugar and that is aside from all the sweet stuff, remember that fruits are good but they are Sweet also. (5) GERD (gastroesophageal reflux disease): Code(s): K21.9 - Gastro-esophageal reflux disease without esophagitis Qualifiers: Esophagitis presence: esophagitis presence not specified Qualified Code(s): K21.9 - Gastro-esophageal reflux disease without esophagitis Plan: Avoid the foods that causes that usually spicy foods, tomato products, juices, coffee, soda and foods that your sensitive to. After eating do not lie down, allow 3-4 hours before in lie down. And keep the head of bed above 30 degrees to avoid the acid from going up. On famotidine 40 mg at bedtime (6) Generalized anxiety disorder: Comment: Panic attacks Code(s): F41.1 - Generalized anxiety disorder Plan: Continue with medication (7) Thumb tendonitis: Code(s): M77.8 - Other enthesopathies, not elsewhere classified Orders: Orders Basic Metabolic Panel Today I10 - Essential (primary) hypertension Medications: Refilled bupropion HCl (Wellbutrin SR) 100 mg PO DAILY 90 days 90 tabs 2RF Coding Level of Care Code Est Pt Prev Care 40-64y(91547) Diagnoses Annual physical exam Z00.00 Obesity E66.9 Hypertension I10 Impaired fasting glucose R73.01 Gastroesophageal reflux disease, unspecified whether esophagitis present K21.9 Esophagitis presence: esophagitis presence not specified Generalized anxiety disorder F41.1 Thumb tendonitis M77.8
== END 2023-08-04 17:10 | disposition home or self-care (01) ==
PROVIDERS: Visit Provider Internal Medicine
DX: Z00.00 Encounter for general adult medical examination without abnormal findings (principal); E66.9 Obesity, unspecified; Z68.41 Body mass index [BMI] 40.0-44.9, adult; I10 Essential (primary) hypertension; R73.01 Impaired fasting glucose; K21.9 Gastro-esophageal reflux disease without esophagitis; F41.1 Generalized anxiety disorder; M77.8 Other enthesopathies, not elsewhere classified
CPT/HCPCS: 99396

== ENCOUNTER 2023-08-25 14:13 | Outpatient (AMB) | payer BC, SELFPAY ==
--- NOTE | 2023-08-25 14:16 | A.OFFVIS_ITS ---
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 She is doing well with concerns: episodes of vaginal bleeding Nov, 2022 x 3d, again in March x 2d. She is uncertain if she is menopausal. Attempting to eat a healthy diet with calcium and vitamin D and stays active with exercise. Currently not sexually active due to husbands health. Denies any vaginal dryness or irritation. Last pap smear; 2022. Last mammogram; 2022. Colonoscopy is UTD. Denies any family history of breast, ovarian or colon cancer. [facility] Medical History Sore throat Positive colorectal cancer screening using Cologuard test Knee pain, left Generalized anxiety disorder Cervical stenosis of spine Terrien marginal degeneration Colon cancer screening Breast cancer screening by mammogram GERD (gastroesophageal reflux disease) Osteoarthritis, knee Allergic rhinitis Skin cancer Impaired fasting glucose Obesity Hypertension Surgical History Hx of colonoscopy History of elbow surgery History of cholecystectomy History of tubal ligation Family History Father Heart disease Hypertension CVD (cardiovascular disease) Mother Hypertension Sister Multiple sclerosis of brain stem Brother S/P CABG x 1 Daughter In good health Social History Housing: House Alcohol intake: current Alcohol intake frequency: holidays/special occasions only Comment: once a month2 glasses Patient Tobacco Use Status: Never used Tobacco e-Cigarette/Vaping Use: Never Used Second Hand Smoke Exposure: No service: No Current occupational status: employed Cognitive needs: No Hearing needs: No Vision needs: Yes Female Reproductive History Menstrual Age of Menarche: 11 control method: permanent sterilization Permanent Sterilization: BTL Total pregnancies: 2 Full term: 2 Number of Living Children: 2 Date of last pap smear: 08/05/22 (neg pap and hpv) Date of Mammogram: 09/04/22 (Birad 1) Review of Systems Const All systems reviewed & are unremarkable except as noted in HPI and below Reports as per HPI Eyes Reports no additional complaints ENT Reports no additional complaints Card Reports no additional complaints Resp Reports no additional complaints GI Reports as per HPI and Reports no additional complaints Reports as per HPI Musc Reports no additional complaints Skin/Breast Reports as per HPI Neuro Reports no additional complaints Psych Reports no additional complaints Endo Reports no additional complaints David/Lymph Reports no additional complaints Aller/Immun Reports no additional complaints Physical Exam Vital Signs: Last Vital Signs BP 110/74 08/25/23 14:17 BMI result Body Mass Index 40.6 Const General: cooperative, healthy appearing, no acute distress, well developed and alert Orientation/consciousness: patient oriented x3 HEENT Head: Yes normal to inspection Eyes General: appearance normal, both eyes and all related structures Neck Neck: Yes normal visual inspection Thyroid: Thyroid normal Chest Chest palpation & inspection: normal inspection of the chest and other (no puckering, dimpling, peau de orange, retraction, discharge, masses) Breast/axilla inspection: normal inspection of the breasts Breast/axilla palpation: normal palpation of the breasts Resp Effort & Inspection: normal respiratory effort GI Inspection: Yes normal to inspection and Yes obesity Palpation (GI): Soft to palpation Rectal Exam - Female: deferred General: Yes bladder normal to palpation External Female Exam: normal external appearance and normal appearance of the urethra Speculum Exam - Vagina: normal appearance of the vagina, normal palpation, normal vaginal discharge and vagina atrophic Speculum Exam - Cervix: normal appearance of the cervix and normal palpation Bimanual exam- vagina & uterus: normal bimanual exam, normal palpation, uterine size normal, bladder normal to palpation, normal palpation and non-tender Bimanual Exam- Adnexa, other: no masses Skin General skin exam: no rashes or lesions noted Rashes: no rashes Neuro General: patient oriented x3 Cognition (Neuro): normal cognition Extrem General: Yes normal to inspection Psych Attitude: cooperative Thought process: Normal thought process present Assessment & Plan Assessment & Plan (1) PMB (postmenopausal bleeding): Code(s): N95.0 - Postmenopausal bleeding Plan Discussed: Current recommendations for pap smears per ASCCP guidelines. Breast awareness, periodic self breast exams and yearly mammogram. Maintain a healthy lifestyle, well balanced diet including Calcium 1,200 mg and Vitamin D 600 IU daily, and routine exercise. Workup for postmenopausal bleeding: including ultrasound and EMB. Discussed preprocedure planning to have something eat and drink and take some ibuprofen about an hour head with food. FSH ordered. Patient verbalizes understanding and agrees to the plan of care. She was given opportunity to ask questions and all questions were answered to the best of my ability. 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 This note is constructed using voice recognition software. While every effort has been made to ensure accuracy, shellfish shucker errors may have been included. Orders: Orders US pelvic and transvaginal Today N95.0 - Postmenopausal bleeding Follicle Stimulating Hormone Today N95.0 - Postmenopausal bleeding Coding Level of Care Code Est Pt Prev Care 40-64y(78509) Diagnoses PMB (postmenopausal bleeding) N95.0
[2023-08-25 14:17] VITALS: BP 110/74; BMI 40.6
== END 2023-08-25 15:03 | disposition home or self-care (01) ==
PROVIDERS: PCP Internal Medicine; Visit Provider Advanced Practice Midwife
DX: Z01.419 Encounter for gynecological examination (general) (routine) without abnormal findings (principal); N95.0 Postmenopausal bleeding
CPT/HCPCS: 99396

== ENCOUNTER → 2023-08-25 14:13 | Outpatient (BNVA) | payer BC, SELFPAY | PROVIDERS: PCP Internal Medicine; Visit Provider Advanced Practice Midwife ==

== ENCOUNTER 2023-09-10 10:16 | Outpatient (REF) | payer BC, SELFPAY ==
[2023-09-10 11:59] LABS: Anion Gap 12 (12-20); Blood Urea Nitrogen 15 mg/dL (9-16); Calcium 9.6 mg/dL (8.4-10.2); Carbon Dioxide 27 mmol/L (22-29); Chloride 107 mmol/L (96-108); Estimated Glomerular Filt Rate > 60; Glucose Random 94 mg/dL (60-115); Sodium 142 mmol/L (135-145)
[2023-09-11 12:04] LABS: Follicle Stimulating Hormone 56.1 mIU/mL
== END 2023-09-10 10:17 | disposition home or self-care (01) ==
LOC: HO.LAB 10:16
PROVIDERS: Absent Provider Advanced Practice Midwife; PCP Internal Medicine; Visit Provider Internal Medicine
DX: N95.0 Postmenopausal bleeding (principal); I10 Essential (primary) hypertension
CPT/HCPCS: 36415; 80048; 83001

== ENCOUNTER 2023-09-13 15:22 | Outpatient (REF) | payer BC, SELFPAY ==
--- NOTE | ~2023-09-13 | US_ITS ---
EXAMINATION: US PELVIS CLINICAL INFORMATION: Postmenopausal bleeding. COMPARISON: Pelvic ultrasound dated 11/27/2016. TECHNIQUE: Ultrasound of the pelvis is performed using both transabdominal and transvaginal transducers along with Doppler. Transvaginal imaging is performed due to inadequate visualization transabdominally. FINDINGS: Uterus: The uterus is anteverted and measures 5.6 x 2.7 x 4.3 cm. The uterus is retroverted and retroflexed. The double wall endometrial thickness is 3 mm. The uterus is smooth in contour and has normal myometrial echogenicity. No visible fibroid. Nabothian cysts are seen within the cervix. Adnexa: The right ovary is not visualized, and the left ovary is visualized. There is normal color flow to the adnexa. There is no ovarian torsion. There is no pelvic ascites or fluid collection. Left ovary measures 1.3 x 1.0 x 1.0 cm, volume 0.7 mL. US/US pelvic and transvaginal IMPRESSION: 1. Nabothian cysts are seen within the cervix. 2. The right ovary is nonvisualized.
== END 2023-09-13 15:23 | disposition home or self-care (01) ==
LOC: HO.US 15:22
PROVIDERS: PCP Internal Medicine; Visit Provider Advanced Practice Midwife
DX: N95.0 Postmenopausal bleeding (principal)
CPT/HCPCS: 76830; 76856

== ENCOUNTER 2023-09-17 10:18 | Outpatient (REF) | payer BC, SELFPAY | END 2023-09-17 10:19 | disposition home or self-care (01) | LOC: HO.MAMMO 10:18 | PROVIDERS: PCP Internal Medicine; Visit Provider Internal Medicine | DX: Z12.31 Encounter for screening mammogram for malignant neoplasm of breast (principal) | CPT/HCPCS: 77063; 77067 ==

== ENCOUNTER → 2023-09-17 10:30 | Outpatient (BNV) | payer BC, SELFPAY | PROVIDERS: PCP Internal Medicine; Visit Provider Radiology Diagnostic Radiology | DX: Z12.31 Encounter for screening mammogram for malignant neoplasm of breast (principal) | CPT/HCPCS: 77063; 77067 ==

== ENCOUNTER 2023-10-10 15:40 | Outpatient (AMB) | payer BC, SELFPAY ==
[2023-10-10 15:41] VITALS: BP 122/70; PULSE 66; O2SAT 97; BMI 40.1
--- NOTE | 2023-10-10 15:41 | A.OFFPC_ITS ---
Vital Signs 10/10/23 15:41 Height 5 ft 2 in Weight 219 lb BMI 40.1 BP 122/70 Blood Pressure Location Lt brachial Position Sitting Pulse 66 Pulse Source Pulse Oximeter Pulse Oximetry (%) 97 Oxygen Delivery Method Room Air Intake Visit Reasons: Hypertension Jr. Systems Administrator Required: No Allergies oxycodone [From PERCOCET] Allergy (Intermediate, Verified 10/10/23 15:42) DID NOT LIKE THE WAY IT MADE HER FEEL Medication List - Last Reconciled 10/10/23 by Lise Chaudhry MD acetaminophen (Tylenol) PO DAILY PRN bupropion HCl (Wellbutrin SR) 100 mg PO DAILY 90 days calcium [id number] rm 133 mg calcium -133 unit-67 mg caps PO famotidine 40 mg PO BEDTIME fexofenadine (Roma Allergy) 180 mg PO DAILY lisinopril 10 mg PO DAILY lysine (L-Lysine) 500 mg PO DAILY multivitamin 1 tab PO DAILY tramadol 50 mg PO DAILY 30 days valacyclovir 500 mg PO BID 3 days Tobacco use date assessed: 10/10/23 Dental Screening Dental Screen Date: 08/04/23 HPI Hypertension HPI Details 63-year-old obese female with impaired g lucose tolerance hypertension GERD generalized anxiety disorder last seen in July 2023. Patient's colonoscopy is up-to-date June 2023 mammogram is up-to-date September 2023. [facility] Medical History Sore throat Positive colorectal cancer screening using Cologuard test Knee pain, left Generalized anxiety disorder Cervical stenosis of spine Terrien marginal degeneration Colon cancer screening Breast cancer screening by mammogram GERD (gastroesophageal reflux disease) Osteoarthritis, knee Allergic rhinitis Skin cancer Impaired fasting glucose Obesity Hypertension Surgical History Hx of colonoscopy History of elbow surgery History of cholecystectomy History of tubal ligation Family History Father Heart disease Hypertension CVD (cardiovascular disease) Mother Hypertension Sister Multiple sclerosis of brain stem Brother S/P CABG x 1 Daughter In good health Social History Housing: House Alcohol intake: current Alcohol intake frequency: holidays/special occasions only Comment: once a month2 glasses Patient Tobacco Use Status: Never used Tobacco e-Cigarette/Vaping Use: Never Used Second Hand Smoke Exposure: No service: No Current occupational status: employed Cognitive needs: No Hearing needs: No Vision needs: Yes Female Reproductive History Menstrual Age of Menarche: 11 Questionnaire Thrive Questionnaire Date Thrive assessed: 07/05/23 AUDIT C Alcohol Use Questionnaire (AUDIT-C) 1. How often do you have a drink containing alcohol?: Never 3. How often do you have six or more drinks on one occasion?: Never Total Score: 0 ISABELL-7 AMB Questionnaire ISABELL-7 Date ISABELL - 7 assessed: 08/04/23 Source: Developed by Drs. Cl Sandoval, Silva Figueroa, Rodolfo Alves and colleagues, with an educational spencer from [employer]. Physical exam (Primary Care) Vital Signs: Last Vital Signs Pulse 66 10/10/23 15:41 BP 122/70 10/10/23 15:41 Pulse Ox 97 10/10/23 15:41 Oxygen Delivery Method Room Air 10/10/23 15:41 BMI result Body Mass Index 40.1 Tobacco/Smoking Status: Tobacco use Status Tobacco use date assessed 10/10/23 10/10/23 15:42 Patient Tobacco Use Status Never used Tobacco 10/10/23 15:42 e-Cigarette/Vaping Use Never Used 10/10/23 15:42 Thrive Assessment: Date of Thrive Assessment Date Thrive assessed 07/05/23 10/10/23 15:42 Const General: alert; No acute distress Eyes Conjunctivae: conjunctivae normal Resp Auscultation: clear to auscultation bilaterally Cardio Rate: regular rate Rhythm: regular rhythm GI Inspection: Yes normal to inspection Extrem General: Yes normal to inspection and No edema Assessment and Plan Assessment & Plan (1) Hypertension: Code(s): I10 - Essential (primary) hypertension Plan: Continue with blood pressure medication. Decrease salt intake and exercise patient takes lisinopril 10 mg once a day (2) Obesity: Code(s): E66.9 - Obesity, unspecified Plan: Diet and exercise (3) Impaired fasting glucose: Code(s): R73.01 - Impaired fasting glucose Plan: Decrease the amount of carbohydrate intake, pasta, bread, rice and potatoes are all sugar and that is aside from all the sweet stuff, remember that fruits are good but they are Sweet also. (4) GERD (gastroesophageal reflux disease): Code(s): K21.9 - Gastro-esophageal reflux disease without esophagitis Qualifiers: Esophagitis presence: esophagitis presence not specified Qualified Code(s): K21.9 - Gastro-esophageal reflux disease without esophagitis Plan: Avoid the foods that causes that usually spicy foods, tomato products, juices, coffee, soda and foods that your sensitive to. After eating do not lie down, allow 3-4 hours before in lie down. And keep the head of bed above 30 degrees to avoid the acid from going up. On famotidine 40 mg once a day (5) Generalized anxiety disorder: Comment: Panic attacks Code(s): F41.1 - Generalized anxiety disorder Plan: Continue with present medication (6) Right sciatic nerve pain: Code(s): M54.31 - Sciatica, right side Plan: exercises advise Medications: Refilled bupropion HCl (Wellbutrin SR) 100 mg PO DAILY 90 tabs 2RF 90 days Coding Level of Care Code Est Pt Level 4 (64003) Diagnoses Hypertension I10 Obesity E66.9 Impaired fasting glucose R73.01 Gastroesophageal reflux disease, unspecified whether esophagitis present K21.9 Esophagitis presence: esophagitis presence not specified Generalized anxiety disorder F41.1 Right sciatic nerve pain M54.31
== END 2023-10-10 17:10 | disposition home or self-care (01) ==
PROVIDERS: PCP Internal Medicine; Visit Provider Internal Medicine
DX: I10 Essential (primary) hypertension (principal); R73.01 Impaired fasting glucose; K21.9 Gastro-esophageal reflux disease without esophagitis; F41.1 Generalized anxiety disorder; M54.31 Sciatica, right side
CPT/HCPCS: 99214

== ENCOUNTER 2023-10-18 15:09 | Outpatient (AMB) | payer BC, SELFPAY ==
--- NOTE | 2023-10-18 15:15 | MHC.OFFVIS ---
Intake Vital Signs 10/18/23 15:22 Height 5 ft 2 in Weight 219 lb BMI 40.1 BP 100/68 Intake Visit Reasons: US follow up/EMB Power Builder Developer: Power Builder Developer Present (Vivian) Allergies oxycodone [From PERCOCET] Allergy (Intermediate, Verified 10/18/23 15:22) DID NOT LIKE THE WAY IT MADE HER FEEL HPI HPI Comments History of Present Illness Details Patient is here today for a follow up ultrasound and an endometrial biopsy. She reports 2 episodes the last 11 months. [facility] Medical History Sore throat Positive colorectal cancer screening using Cologuard test Knee pain, left Generalized anxiety disorder Cervical stenosis of spine Terrien marginal degeneration Colon cancer screening Breast cancer screening by mammogram GERD (gastroesophageal reflux disease) Osteoarthritis, knee Allergic rhinitis Skin cancer Impaired fasting glucose Obesity Hypertension Surgical History Hx of colonoscopy History of elbow surgery History of cholecystectomy History of tubal ligation Family History Father Heart disease Hypertension CVD (cardiovascular disease) Mother Hypertension Sister Multiple sclerosis of brain stem Brother S/P CABG x 1 Daughter In good health Social History Housing: House Alcohol intake: current Alcohol intake frequency: holidays/special occasions only Comment: once a month2 glasses Patient Tobacco Use Status: Never used Tobacco e-Cigarette/Vaping Use: Never Used Second Hand Smoke Exposure: No service: No Current occupational status: employed Cognitive needs: No Hearing needs: No Vision needs: Yes Female Reproductive History Menstrual Age of Menarche: 11 Review of Systems Const All systems reviewed & are unremarkable except as noted in HPI and below Physical Exam Const General: cooperative, healthy appearing and no acute distress Orientation/consciousness: patient oriented x3 GI Inspection: Yes normal to inspection Palpation (GI): Soft to palpation and Other GI palpation findings present (Nontender) Rectal Exam - Female: visual inspection normal General: Yes bladder normal to palpation External Female Exam: normal appearance of the urethra Speculum Exam - Vagina: normal appearance of the vagina, normal palpation, normal vaginal discharge and vagina atrophic Speculum Exam - Cervix: normal appearance of the cervix and normal palpation Bimanual exam- vagina & uterus: normal bimanual exam, normal palpation, uterine size normal, bladder normal to palpation, normal palpation, uterine shape normal and non-tender Bimanual Exam- Adnexa, other: normal adnexae Neuro General: patient oriented x3 Office Procedures Endometrial Biopsy Details: The patient is here today for an endometrial biopsy due to PMB to rule out any pathology including atypical, hyperplasia or cancer cells of the uterus. She was counseled regarding anticipatory guidance for the procedure including the risks for pain, infection, bleeding, perforation, potential injury to the tissues may include the cervix, uterus, tubes, bladder and bowels. These injuries may include further treatment and evaluation including surgery, blood transfusions, antibiotics, hospitalizations and anesthesia. Permanent injury and scarring can occur. She was consented for the procedure, and the consent forms were signed. She is agreeable to have the procedure today. All questions were answered. Endometrial Biopsy Procedure: The patient was placed in the dorsal lithotomy position and a sterile speculum inserted. Using aseptic technique for the procedure. The cervix was cleansed with Betadine x 3 swabs. A single toothed tenaculum was placed on the cervix for stabilization and the uterus was sounded to 5 cm with a 4mm pipelle for 4 passes. Minimal bleeding was observed. The tissue sample was placed in formalin in a patient labeled container by staff assisting and sent to the pathology department for processing and interpretation. The patient tolerate the procedure well and was in good condition when leaving the department. Endometrial Biopsy Post Procedure Care: Nothing in the vagina including: tampons, douching or intimacy until all the bleeding has subsided. There may be some post procedure bleeding for several days, this bleeding is usually light and may turn to a light brown or pink color. Mild cramps may occurs. Nothing in the vaginal including: tampons, douching, or intimacy until all the bleeding has subsided. You may take an over the counter mild analgesic such as Tylenol or Advil (if no allergies) per the manufactures recommendation on dosing, frequency, and follow the directions completely. Call the office if any: fever (over 100.4), flu like symptoms, abdominal pain (worse than cramping), foul smelling, infected appearing vaginal discharge, or heavy bleeding. If indicated: Use condoms to prevent and STI's, and only after the bleeding has stopped completely. Return to the office in 2 weeks for results and plan of care. This note is constructed using voice recognition software. While every effort has been made to ensure accuracy, technical supervisor errors may have been included. [id number] Biopsy Results Reviewed Results Reviewed: [address] [address] Ultrasound Report Signed Patient: Stella Jackson MR#: [id number] : 1960 Acct:[id number] Age/Sex: 63 / F ADM Date: 09/13/23 Loc: HO.US Attending Dr: Ara Danielson CNM Ordering Physician: Ara Danielson CNM Date of Service: 09/13/23 Procedure(s): US pelvic and transvaginal Accession Number(s): [id number] cc: Ara Danielson CNM; Lise Chaudhry MD~ EXAMINATION: US PELVIS CLINICAL INFORMATION: Postmenopausal bleeding. COMPARISON: Pelvic ultrasound dated 11/27/2016. TECHNIQUE: Ultrasound of the pelvis is performed using both transabdominal and transvaginal transducers along with Doppler. Transvaginal imaging is performed due to inadequate visualization transabdominally. FINDINGS: Uterus: The uterus is anteverted and measures 5.6 x 2.7 x 4.3 cm. The uterus is retroverted and retroflexed. The double wall endometrial thickness is 3 mm. The uterus is smooth in contour and has normal myometrial echogenicity. No visible fibroid. Nabothian cysts are seen within the cervix. Adnexa: The right ovary is not visualized, and the left ovary is visualized. There is normal color flow to the adnexa. There is no ovarian torsion. There is no pelvic ascites or fluid collection. Left ovary measures 1.3 x 1.0 x 1.0 cm, volume 0.7 mL. US/US pelvic and transvaginal IMPRESSION: 1. Nabothian cysts are seen within the cervix. 2. The right ovary is nonvisualized. Dictated By: Ed Phillips MD Signed By: <Electronically signed by Ed Phillips MD in OV> 09/15/23 1720 DD/ 1630 TD/TT: Software Development Manager: OUMAR Assessment & Plan Assessment & Plan (1) PMB (postmenopausal bleeding): Code(s): N95.0 - Postmenopausal bleeding Plan: See EMB note. (2) Encounter to discuss test results: Code(s): Z71.2 - Person consulting for explanation of examination or test findings Plan: See EMB notes. Coding Level of Care Code Procedure Only Diagnoses PMB (postmenopausal bleeding) N95.0 Encounter to discuss test results Z71.2 CPT Codes Endometrial Biopsy - CPT: 69477-[id number] Biopsy ([id number])
[2023-10-18 15:22] VITALS: BP 100/68; BMI 40.1
== END 2023-10-18 16:03 | disposition home or self-care (01) ==
LOC: HO.HWS 15:09
PROVIDERS: PCP Internal Medicine; Visit Provider Advanced Practice Midwife
DX: N95.0 Postmenopausal bleeding (principal); Z71.2 Person consulting for explanation of examination or test findings
CPT/HCPCS: 58100

== ENCOUNTER 2023-10-18 15:09 | Outpatient (REF) | payer BC, SELFPAY | END 2023-10-18 15:10 | disposition home or self-care (01) | LOC: HO.LAB 15:09 | PROVIDERS: PCP Internal Medicine; Visit Provider Advanced Practice Midwife | DX: N95.0 Postmenopausal bleeding (principal) | CPT/HCPCS: 58100; 88305 ==

== ENCOUNTER 2023-11-01 15:11 | Outpatient (AMB) | payer BC, SELFPAY ==
[2023-11-01 15:24] VITALS: BP 114/70; BMI 40.1
--- NOTE | 2023-11-01 15:24 | MHC.OFFVIS ---
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 Her last episode of vaginal bleeding was in March of 2022. [facility] Medical History Sore throat Positive colorectal cancer screening using Cologuard test Knee pain, left Generalized anxiety disorder Cervical stenosis of spine Terrien marginal degeneration Colon cancer screening Breast cancer screening by mammogram GERD (gastroesophageal reflux disease) Osteoarthritis, knee Allergic rhinitis Skin cancer Impaired fasting glucose Obesity Hypertension Surgical History Hx of colonoscopy History of elbow surgery History of cholecystectomy History of tubal ligation Family History Father Heart disease Hypertension CVD (cardiovascular disease) Mother Hypertension Sister Multiple sclerosis of brain stem Brother S/P CABG x 1 Daughter In good health Social History Housing: House Alcohol intake: current Alcohol intake frequency: holidays/special occasions only Comment: once a month2 glasses Patient Tobacco Use Status: Never used Tobacco e-Cigarette/Vaping Use: Never Used Second Hand Smoke Exposure: No service: No Current occupational status: employed Cognitive needs: No Hearing needs: No Vision needs: Yes Female Reproductive History Menstrual Age of Menarche: 11 Review of Systems Const All systems reviewed & are unremarkable except as noted in HPI and below Endo Reports no additional complaints Physical Exam Vital Signs: Last Vital Signs BP 114/70 11/01/23 15:24 BMI result Body Mass Index 40.1 Const General: cooperative, healthy appearing and no acute distress Psych Appearance: well kempt Attitude: cooperative Thought process: Normal thought process present Results Reviewed Results Reviewed: Name: Stella Jackson Age/Sex: 63/F Attending: Ara Danielson CNM : 1960 Submitted by: Ara Danielson CNM Copies to: Lise Chaudhry MD MR #: [id number] Status: DEP REF Collected: 10/18/23 Location: [facility] Received: 10/19/23 Diagnosis Endometrium, biopsy: Scant benign, markedly fragmented inactive endometrium and benign endocervical glandular and reactive squamous epithelium; no atypia or carcinoma. Clinical History PMB Microscopic Description Microscopic sections reviewed. Material Received Endometrial biopsy Gross Description Received in formalin labeled ?EMB? is a 1.0 x 1.0 x 0.4 cm aggregate of mucus, blood and multiple congested and hemorrhagic red-maroon tissue fragments, submitted in toto in a cassette labeled A. CEDS Copies To Ara Danielson CNM [address] [place] [address] Dr. [address] [address] Lise Chaudhry MD [address] [place] [address] Dr. [address] [address] NOTE: Unless otherwise stated, all tissue is formalin-fixed and paraffin-embedded. Some or all of the immunohistochemical tests reported herein may have been developed and their performance characteristics determined by [facility]. They have not been cleared or approved by the U.S. Food and Drug Administration (FDA). However, the FDA has determined that such clearance or approval is not necessary. This laboratory is certified under the Clinical Laboratory Improvement Amendments of 1988 (CLIA) as qualified to perform high complexity clinical laboratory testing. Electronically Signed By: Cheryl Earl 10/21/23 3203 Patient: Stella Jackson [facility]: 63[id number] MR#: [id number] Page 1 of 1 Assessment & Plan Assessment & Plan (1) Encounter to discuss test results: Code(s): Z71.2 - Person consulting for explanation of examination or test findings Plan Discussed: EMB results are negative. Advised to call if any further postmenopausal bleeding, which would require further workup. Next appointment will be scheduled dairy scientist exam. All of her questions and concerns were addressed to the best of my ability. This note is constructed using voice recognition software. While every effort has been made to ensure accuracy, power cleaner operator errors may have been included. Coding Level of Care Code Est Pt Level 3 (06191) Diagnoses Encounter to discuss test results Z71.2
== END 2023-11-01 15:56 | disposition home or self-care (01) ==
LOC: HO.HWS 15:11
PROVIDERS: PCP Internal Medicine; Visit Provider Advanced Practice Midwife
DX: Z71.2 Person consulting for explanation of examination or test findings (principal)
CPT/HCPCS: 99213

== ENCOUNTER → 2023-11-01 15:11 | Outpatient (BNVA) | payer BC, SELFPAY | PROVIDERS: PCP Internal Medicine; Visit Provider Advanced Practice Midwife ==

== ENCOUNTER 2024-04-17 10:41 | Outpatient (AMB) | payer BC, SELFPAY ==
--- NOTE | 2024-04-17 11:11 | AM.OFFWIN_ITS ---
Intake Vital Signs 04/17/24 11:14 Height 5 ft 2 in Weight 225 lb BMI 41.1 BP 126/80 Blood Pressure Location Lt brachial Position Sitting Pulse 79 Pulse Oximetry (%) 98 Oxygen Delivery Method Room Air Intake Visit Reasons: EP Pain on her left knee Intake Note: Patient here because she had a fall in her kitchen, she slipped on water and fell and injured her already injured right knee which happened a couple of days ago. Patient Tobacco Use Status: Never used Tobacco Allergies oxycodone [From PERCOCET] Allergy (Intermediate, Verified 04/17/24 11:17) DID NOT LIKE THE WAY IT MADE HER FEEL Do you need a note to return to daycare/school/sports/work: Yes HPI HPI Comments History of Present Illness Details Patient is a 63yo F who presents to office with knee pain 2.5 weeks ago she was in kitchen and sli pped She had signifcant edema, bruising and pain in knee since Gets cortisone injections in L knee by [facility] but no surgery No blood thinner use Stiff in am and better throughout day but still sore Has been elevating and helping [facility] History (Updated 04/17/24 @ 16:28 by Licha Blankenship PA-C) Knee pain, left Sore throat Positive colorectal cancer screening using Cologuard test Generalized anxiety disorder Cervical stenosis of spine Terrien marginal degeneration Colon cancer screening Breast cancer screening by mammogram GERD (gastroesophageal reflux disease) Osteoarthritis, knee Allergic rhinitis Skin cancer Impaired fasting glucose Obesity Hypertension Surgical History Hx of colonoscopy History of elbow surgery History of cholecystectomy History of tubal ligation Family History Father Heart disease Hypertension CVD (cardiovascular disease) Mother Hypertension Sister Multiple sclerosis of brain stem Brother S/P CABG x 1 Daughter In good health Social History Housing: House Alcohol intake: current Alcohol intake frequency: holidays/special occasions only Comment: once a month2 glasses Patient Tobacco Use Status: Never used Tobacco e-Cigarette/Vaping Use: Never Used Second Hand Smoke Exposure: No service: No Current occupational status: employed Cognitive needs: No Hearing needs: No Vision needs: Yes Female Reproductive History Menstrual Age of Menarche: 11 Physical Exam Vital Signs: Last Vital Signs Pulse 79 04/17/24 11:14 BP 126/80 04/17/24 11:14 Pulse Ox 98 04/17/24 11:14 Oxygen Delivery Method Room Air 04/17/24 11:14 BMI result Body Mass Index 41.1 General: Non-toxic, NAD. Speaking full sentences. Skin: Warm dry throughout LLE: + blue/purple ecchymosis to L anterior connelly at medial proximal to mid connelly level, oval shaped approx 2cm x 5cm long. There is yellow/green discolored circular region to L lateral knee just inferior to patella. + slight edema over L knee. Respiratory: No respiratory distress or stridor Cardiac: RRR. No murmur. No calf tenderness bilaterally MSK: Full ROM extremities. + tenderness to palpation L knee along medial joint compartment, tibial plateau and proximal tibial region. Neurology: A/O. No aphasia or facial droop. Psych: Good mood and affect Assessment & Plan Assessment & Plan (1) Leg pain, left: Code(s): M79.605 - Pain in left leg Plan: Patient seen and evaluated. Xray tib/fib and knee shows no acute fx DEREJE wrap given and instructions for use provided Ortho referral given as she sees [facility] for her knee pain in past Rest, ice, elevate Patient gave verbal understanding and had no additional questions or concerns at time of discharge All questions answered (2) Accident due to mechanical fall without injury: Code(s): W19.XXXA - Unspecified fall, initial encounter Qualifiers: Encounter type: initial encounter Qualified Code(s): W19.XXXA - Unspecified fall, initial encounter Plan: see above (3) Knee pain, left: Code(s): M25.562 - Pain in left knee Qualifiers: Chronicity: acute Qualified Code(s): M25.562 - Pain in left knee Plan: see above Orders: Orders XR tibia fibula LT 2V Today M79.605 - Pain in left leg Referrals Orthopedics Referral M25.562 - Pain in left knee Coding Level of Care Code Est Pt Level 3 (20937) Diagnoses Leg pain, left M79.605 Accident due to mechanical fall without injury, initial encounter W19.XXXA Encounter type: initial encounter Acute pain of left knee M25.562 Chronicity: acute
[2024-04-17 11:14] VITALS: BP 126/80; PULSE 79; O2SAT 98; BMI 41.1
== END 2024-04-17 12:15 | disposition home or self-care (01) ==
PROVIDERS: PCP Internal Medicine; Visit Provider Physician Assistant
DX: M79.605 Pain in left leg (principal); W19.XXXA Unspecified fall, initial encounter; M25.562 Pain in left knee

== ENCOUNTER → 2024-04-17 10:41 | Outpatient (BNVA) | payer BC, SELFPAY | PROVIDERS: PCP Internal Medicine; Visit Provider Physician Assistant ==

== ENCOUNTER 2024-04-17 11:35 | Outpatient (REF) | payer BC, SELFPAY ==
--- NOTE | ~2024-04-17 | XR_ITS ---
EXAMINATION: XR KNEE, LEFT XR TIBIA FIBULA, LEFT CLINICAL INFORMATION: Left leg pain COMPARISON: None available. TECHNIQUE: Four views of the left knee. AP and lateral views of the left tibia and fibula FINDINGS: Mild medial and patellofemoral compartment osteoarthritis of the left knee. No fracture. No joint effusion. No fracture or bone lesion of the left tibia or fibula. No radiopaque foreign body. XR/XR tibia fibula LT 2V IMPRESSION: Mild medial and patellofemoral compartment osteoarthritis of the left knee. No acute osseous abnormality. Electronically signed by: Butch Good MD 04/17/2024 03:00 PM EDT
--- NOTE | ~2024-04-17 | XR_ITS ---
EXAMINATION: XR KNEE, LEFT XR TIBIA FIBULA, LEFT CLINICAL INFORMATION: Left leg pain COMPARISON: None available. TECHNIQUE: Four views of the left knee. AP and lateral views of the left tibia and fibula FINDINGS: Mild medial and patellofemoral compartment osteoarthritis of the left knee. No fracture. No joint effusion. No fracture or bone lesion of the left tibia or fibula. No radiopaque foreign body. XR/XR knee LT 4V IMPRESSION: Mild medial and patellofemoral compartment osteoarthritis of the left knee. No acute osseous abnormality. Electronically signed by: Butch Good MD 04/17/2024 03:00 PM EDT
== END 2024-04-17 11:36 | disposition home or self-care (01) ==
LOC: HO.HMGCX 11:35
PROVIDERS: PCP Internal Medicine; Visit Provider Physician Assistant
DX: M79.605 Pain in left leg (principal); M25.562 Pain in left knee; W19.XXXA Unspecified fall, initial encounter
CPT/HCPCS: 73564; 73590

== ENCOUNTER → 2024-07-16 15:01 | Outpatient (BNV) | payer BC, SELFPAY | PROVIDERS: PCP Internal Medicine; Visit Provider Internal Medicine | DX: R07.9 Chest pain, unspecified (principal) | CPT/HCPCS: 93010 ==

== ENCOUNTER → 2024-07-16 15:23 | Outpatient (BNV) | payer BC, SELFPAY | PROVIDERS: PCP Internal Medicine; Visit Provider Radiology Diagnostic Radiology | DX: R05.9 Cough, unspecified (principal) | CPT/HCPCS: 71045 ==

== ENCOUNTER → 2024-07-17 00:11 | Outpatient (BNV) | payer BC, SELFPAY | PROVIDERS: Emergency Provider Emergency Medicine; PCP Internal Medicine; Visit Provider Radiology Neuroradiology | DX: J90 Pleural effusion, not elsewhere classified (principal) | CPT/HCPCS: 71275 ==

== ENCOUNTER 2024-08-06 16:00 | Outpatient (AMB) | payer BC, SELFPAY ==
--- NOTE | 2024-08-06 16:17 | A.OFFPC_ITS ---
Vital Signs 08/06/24 16:27 Height 5 ft 2 in Weight 219 lb 2 oz BMI 40.1 BP 142/90 H Blood Pressure Location Lt brachial Position Sitting Pulse 102 H Pulse Source Pulse Oximeter Pulse Oximetry (%) 97 Oxygen Delivery Method Room Air Intake Visit Reasons: pe Intake Note: Patient is here today for a physical. Event Promotions Coordinator Required: No Accompanied by: Self / Same As Patient Allergies oxycodone [From PERCOCET] Allergy (Intermediate, Verified 08/06/24 16:32) DID NOT LIKE THE WAY IT MADE HER FEEL Tobacco use date assessed: 08/06/24 Dental Screening Dental Screen Date: 08/06/24 Did you have a dental visit in the last 12 months?: Yes Did you have a dental problem in the last 6 months where you did not have access to dental care?: No Was dental information given to patient?: Patient has dentist HPI pe HPI Details PAtient presently having pain and anxiety, passes away 03/2024 The patient is a 64-year-old female presenting with ongoing management issues related to her left knee osteoarthritis, panic attacks, and sciatica. The patient reports a history of left knee osteoarthritis with previous corticosteroid injections. She also visited the emergency room after a fall resulting in aggravation of knee pain. Despite treatment, she continues to experience significant pain, which has resulted in functional impairment, prompting her to use a cane. She noted the onset of knee pain before her hus band?s , where she experienced bruising on the leg. Additionally, she reports a history of sciatica with persistent back and leg pain resistant to exercises and treatment. Furthermore, the patient has been experiencing panic attacks and heightened anxiety following the of her on April 07, attributed to [id number] pneumonia. She describes episodes of chest tightness and panic, suspecting an influence on her blood pressure readings. These anxieties occasionally reach a level where she can no longer participate in her usual daily activities. Her concerns about her dog?s anxiety when left home alone exacerbate her stress. She has found some stability with her current walking aid, but her mobility remains limited and precarious. - Patient has received the COVID-19 vacc ine. - Discussion about the use of famotidine for acid reflux occurred, advising a switch to evening dosing for optimal effect. - Encouraged to maintain hydration despi te difficulties in fluid intake. - She is a , whose recently due to complications from COVID-19. - She indicates significant emotional herring pport from her daughter. - The patient?s dog, who was accustomed to her late ?s presence at home, requires medication due to anxiety when alone. - Currently employed, but experiencing o ccupational stress due to changes in technology and workflow at the workplace. - Psychological: Reports episodes of birch ic and anxiety. - Musculoskeletal: Reports increased zeke n in the left knee and sciatica affecting daily activities. - Respiratory: Denies respiratory compli cations but reports tightness in the chest during panic episodes. [facility] Medical History Knee pain, left Sore throat Positive colorectal cancer screening using Cologuard test Generalized anxiety disorder Cervical stenosis of spine Terrien marginal degeneration Colon cancer screening Breast cancer screening by mammogram GERD (gastroesophageal reflux disease) Osteoarthritis, knee Allergic rhinitis Skin cancer Impaired fasting glucose Obesity Hypertension Surgical History Hx of colonoscopy History of elbow surgery History of cholecystectomy History of tubal ligation Family History Father Heart disease Hypertension CVD (cardiovascular disease) Mother Hypertension Sister Multiple sclerosis of brain stem Brother S/P CABG x 1 Daughter In good health Social History Housing: House Alcohol intake: current Alcohol intake frequency: holidays/special occasions only Comment: once a month2 glasses Patient Tobacco Use Status: Never used Tobacco e-Cigarette/Vaping Use: Never Used Second Hand Smoke Exposure: No service: No Current occupational status: employed Cognitive needs: No Hearing needs: No Vision needs: Yes Female Reproductive History Menstrual Age of Menarche: 11 Questionnaire PHQ-9 Over the last 2 weeks, how often have you been bothered by any of the following problems? 1. Little interest or pleasure in doing things: not at all 2. Feeling down, depressed, or hopeless: not at all 3. Trouble falling or staying asleep, or sleeping too much: not at all 4. Feeling tired or having little energy: not at all 5. Poor appetite or overeating: not at all 6. Feeling bad about yourself - or that you are a failure or have let yourself or your family down: not at all 7. Trouble concentrating on things, such as reading the newspaper or watching television: not at all 8. Moving or speaking so slowly that other people could have noticed. Or the opposite - being so fidgety or restless that you have been moving around a lot more than usual: not at all 9. Thoughts that you would be better off or of hurting yourself in some way: not at all Total score: 0 Depression Screening Interpretation: Negative Depression Screening Done: Yes 16448 - PHQ-9 Billing: Yes Source: Developed by Drs. Cl Sandoval, Silva Figueroa, Rodolfo Alves and colleagues, with an educational spencer from [employer]. Thrive Questionnaire Date Thrive assessed: 08/06/24 I am a: Patient What is your living situation today?: I have a steady place to live Within the past 12 months, did the food you bought not last and you didn't have the money to get more?: Never true Within the past 12 months, did you worry whether your food would run out before you got money to buy more?: Never true Do you have trouble paying for medicines?: No Do you have trouble getting transportation to medical appointments?: No Do you have trouble paying your heating and electricity bill?: No Do you have trouble taking care of your child, family member or friend?: No Do you have trouble with day-to-day activities such as bathing, preparing meals, shopping, managing finances, etc.?: No Are you currently unemployed and looking for a job?: No Are you interested in more education?: No Please select the resources that you would like help with: None Currently or been in a relationship where the following occur: No concerns reported THRIVE Score: 0 AUDIT C Alcohol Use Questionnaire (AUDIT-C) 1. How often do you have a drink containing alcohol?: Monthly or less 2. How many drinks containing alcohol do you have on a typical day when you are drinking?: 1 or 2 3. How often do you have six or more drinks on one occasion?: Never Total Score: 1 ISABELL-7 AMB Questionnaire ISABELL-7 Date ISABELL - 7 assessed: 08/06/24 Feeling nervous, anxious, or on edge: 1 = Several days Not being able to stop or control worryin = Several days Worrying too much about different things: 1 = Several days Trouble relaxin = Not at all Being so restless that it is hard to sit still: 0 = Not at all Becoming easily annoyed or irritable: 1 = Several days Feeling afraid as if something awful might happen: 1 = Several days Total ISABELL-7 score (0-4 normal; 5-9 mild; 10-14 moderate; 15-21 severe): 5 Source: Developed by Drs. Cl Sandoval, Silva Figueroa, Rodolfo Alves and colleagues, with an educational spencer from [employer]. ISABELL-7 Assessment Billing ISABELL-7 Assessment Tool: ISABELL-7 Assessment 28031 Review of Systems Const Denies poor appetite and Denies weakness Eyes Denies no additional complaints ENT Reports Normal hearing present, Denies dizziness, Denies nasal congestion, Denies tinnitus and Denies sore throat Card Denies chest pain, Denies syncope, Denies rapid heart rate and Denies dyspnea Resp Denies cough and Denies dyspnea GI Denies change in stool character, Reports constipation, Denies diarrhea, Denies nausea and Denies vomiting Denies urinary frequency, Denies difficulty voiding and Denies dysuria Neuro Reports Normal hearing present, Denies confusion, Denies dizziness, Denies syncope and Denies weakness Psych Denies confusion Physical exam (Primary Care) Vital Signs: Last Vital Signs Pulse 102 H 08/06/24 16:27 BP 142/90 H 08/06/24 16:27 Pulse Ox 97 08/06/24 16:27 Oxygen Delivery Method Room Air 08/06/24 16:27 BMI result Body Mass Index 40.1 Tobacco/Smoking Status: Tobacco use Status Tobacco use date assessed 08/06/24 08/06/24 16:32 Patient Tobacco Use Status Never used Tobacco 08/06/24 16:18 e-Cigarette/Vaping Use Never Used 08/06/24 16:18 PHQ-9: PHQ-9 Score PHQ-9: Total score 0 08/06/24 16:48 Depression Screening Interpretation: Negative Thrive Assessment: Date of Thrive Assessment Date Thrive assessed 08/06/24 08/06/24 16:18 Currently or been in a relationship where the following occur: No concerns reported Const General: No confusion Orientation/consciousness: No confusion HENMT Head: Yes normocephalic Ears: external ears normal and TM's normal bilaterally Face and sinus: Yes normal facial exam Mouth: moist mucous membranes Throat: Yes tonsils normal Eyes Conjunctivae: conjunctivae normal Pupils: Equal, round and reactive pupils present and Pupil accommodation reflex normal Direct Ophthalmoscopy: normal light reflex Neck Neck: No lymphadenopathy Thyroid: Thyroid normal Chest Chest palpation & inspection: normal inspection of the chest Resp Effort & Inspection: normal respiratory effort and no audible wheezes Auscultation: clear to auscultation bilaterally, no crackles, no wheezes and lung sounds not diminished Cardio Rate: regular rate Rhythm: regular rhythm Peripheral pulses: radial pulses present and dorsalis pedis present GI Palpation (GI): no masses Auscultation: normal bowel sounds and normoactive bowel sounds Rectal Exam - Female: deferred Skin General skin exam: no rashes or lesions noted Rashes: no rashes Neuro General: No confusion Cranial nerves: Yes Equal, round and reactive pupils present and Yes Normal hearing present Cognition (Neuro): normal cognition Gait exam (Neuro): Normal gait present Motor exam (neuro): 5/5 motor strength present throughout Deep tendon reflexes (DTR's): Right brachioradialis reflex intensity grade: 2+, Left brachioradialis reflex intensity grade: 2+, Right patellar reflex intensity grade: 2+ and Left patellar reflex intensity grade: 2+ Extrem General: No edema Coding Level of Care Code Est Pt Level 4 (31602) Complex EM visit Add On G2211 Diagnoses Annual physical exam Z00.00 Osteoarthritis of left knee M17.12 Obesity E66.9 Impaired fasting glucose R73.01 Hypertension I10 Gastroesophageal reflux disease, unspecified whether esophagitis present K21.9 Esophagitis presence: esophagitis presence not specified Generalized anxiety disorder F41.1 Additional Codes ISABELL-7 Assessment Billing - ISABELL-7 Assessment Tool: ISABELL-7 Assessment 03814 ([id number]) PHQ-9 - 66923 - PHQ-9 Billing: Yes ([id number]) Assessment & Plan Assessment & Plan (1) Annual physical exam: Code(s): Z00.00 - Encounter for general adult medical examination without abnormal findings Category: Medical (2) Osteoarthritis of left knee: Code(s): M17.12 - Unilateral primary osteoarthritis, left knee Category: Medical (3) Obesity: Code(s): E66.9 - Obesity, unspecified Category: Medical (4) Impaired fasting glucose: Code(s): R73.01 - Impaired fasting glucose Category: Medical (5) Hypertension: Code(s): I10 - Essential (primary) hypertension Category: Medical (6) GERD (gastroesophageal reflux disease): Code(s): K21.9 - Gastro-esophageal reflux disease without esophagitis Category: Medical Qualifiers: Esophagitis presence: esophagitis presence not specified Qualified Code(s): K21.9 - Gastro-esophageal reflux disease without esophagitis (7) Generalized anxiety disorder: Comment: Panic attacks Code(s): F41.1 - Generalized anxiety disorder Category: Medical Plan - Continue management with corticosteroid injections for symptomatic relief of left knee osteoarthritis. - Evaluate use of alprazolam on a trial basis to manage acute panic and anxiety episodes. - Recommend switching famotidine administration to nighttime to avoid interaction with other morning medications. - Continue using a cane for mobility assistance to prevent falls. - Schedule a follow-up for comprehensive fasting blood work. I discussed the management of osteoarthritis with the patient, including continuation of injections and the use of a cane for stability. We explored her current anxiolytic regimen, opting to introduce alprazolam to help manage acute episodes of anxiety. We clarified the timing of famotidine to enhance its effectiveness by avoiding interaction with her morning medications. The importance of proper hydration was reiterated, as well as the need to schedule comprehensive blood work. After reviewing her current life stressors, I acknowledged the support from her daughter and the challenges posed by her 's passing. No new vaccinations for RSV were deemed necessary at this time due to the absence of significant respiratory risk. - Continue managing knee osteoarthritis with prescribed treatments, including any scheduled injections. - Use the cane consistently to support walking and prevent falls. - When experiencing anxiety, try the new medication as prescribed. - Shift famotidine dosage to nighttime for better efficacy. - Make sure to stay hydrated. - Schedule the recommended blood work to update health status. - Reach out if experience severe panic symptoms or any new concerning symptoms arise. Orders: Orders Lipid Panel Today E78.00 - Pure hypercholesterolemia, unspecified, R73.01 - Impaired fasting glucose Vitamin D 25-OH Total Today R73.01 - Impaired fasting glucose UA w Microscopic Today R73.01 - Impaired fasting glucose Hemoglobin A1c Today R73.01 - Impaired fasting glucose Free T4 (Free Thyroxine) Today R73.01 - Impaired fasting glucose Thyroid Stimulating Hormone Today R73.01 - Impaired fasting glucose Complete Blood Count Auto Diff Today R73.01 - Impaired fasting glucose Comprehensive Met. Panel Today R73.01 - Impaired fasting glucose Vitamin B12 and Folate Today R73.01 - Impaired fasting glucose Medications: New alprazolam 0.25 mg PO BEDTIME PRN 14 tabs 0RF sleep F41.1 - Generalized anxiety disorder
[2024-08-06 16:27] VITALS: BP 142/90; PULSE 102; O2SAT 97; BMI 40.1
== END 2024-08-06 17:09 | disposition home or self-care (01) ==
PROVIDERS: PCP Internal Medicine; Visit Provider Internal Medicine
DX: Z00.00 Encounter for general adult medical examination without abnormal findings (principal); M17.12 Unilateral primary osteoarthritis, left knee; Z68.41 Body mass index [BMI] 40.0-44.9, adult; E66.9 Obesity, unspecified; R73.01 Impaired fasting glucose; I10 Essential (primary) hypertension; K21.9 Gastro-esophageal reflux disease without esophagitis; F41.1 Generalized anxiety disorder

== ENCOUNTER → 2024-08-06 16:00 | Outpatient (BNVA) | payer BC, SELFPAY | PROVIDERS: PCP Internal Medicine; Visit Provider Internal Medicine | DX: Z00.00 Encounter for general adult medical examination without abnormal findings (principal); M17.12 Unilateral primary osteoarthritis, left knee; E66.9 Obesity, unspecified; R73.01 Impaired fasting glucose; I10 Essential (primary) hypertension; K21.9 Gastro-esophageal reflux disease without esophagitis; F41.1 Generalized anxiety disorder | CPT/HCPCS: 96127 ==

== ENCOUNTER 2024-09-08 10:01 | Outpatient (REF) | payer BC, SELFPAY ==
[2024-09-08 11:17] LABS: Estimated Average Glucose 108 mg/dL; Hemoglobin A1C 126.2363 umol/L; Hemoglobin A1c % 5.4 % (<6.0)
[2024-09-08 11:40] LABS: Basophils Percent Auto 0.7 % (0-2); Eosinophils Absolute Auto 0.1 X10*3/uL (0.0-0.4); Eosinophils Percent Auto 1.8 % (0-4); Hematocrit 41.5 % (37.0-47.0); Hemoglobin 13.8 g/dl (12.0-16.0); Imm Gran Abs Auto 0.02 X10*3/uL (0.00-0.03); Imm Gran Pct Auto 0.4 % (0.0-0.4); Lymphocytes Absolute Auto 1.5 X10*3/uL (1.2-4.9); Lymphocytes Percent Auto 27.6 % (20-40); MANUAL DIFF FLAG SCAN; Mean Corpuscular HGB Conc 33.3 g/dl (31.0-35.0); Mean Corpuscular Hemoglobin 32.4 pg (27.0-33.0); Mean Corpuscular Volume 97.4 fL (80.0-98.0); Monocytes Absolute Auto 0.5 X10*3/uL (0.1-1.2); Monocytes Percent Auto 8.6 % (2-11); Neutrophils Absolute Auto 3.4 x10*3/uL (2.0-8.3); Neutrophils Percent Auto 60.9 % (45-73); PLT CLUMP 1; Red Blood Count 4.26 X10*6/uL (4.20-5.50); Red Cell Distribution Width 12.9 % (11.0-16.0); SCAN SMEAR FLAG 1
[2024-09-08 11:41] LABS: Platelet Count 241 X10*3/uL (160-400); White Blood Count 5.6 X10*3/uL (4.8-10.8)
[2024-09-08 11:43] LABS: Appearance Urine Clear; Color Urine Yellow; Glucose Urine UA Negative (Negative); Leukocyte Esterase Urine Trace (Negative); Nitrite Urine Negative (Negative); PH 5.5 (5.0-9.0); UMIC TRIGGER UA YES; Urine Blood Negative (Negative); Urine Ketones Negative (Negative); Urine Protein Negative (Neg-Trace)
[2024-09-08 11:44] LABS: SLIDE REVIEW VERIFIED
[2024-09-08 11:46] LABS: Bacteria Urine None Seen (None Seen); Hyaline Casts Urine 0-2 /LPF (0-2); RBC Urine 0-2 /HPF (0-2); Squamous Epithelial Cell Urine 0-2 /HPF (0-2); WBC Urine 0-5 /HPF (0-5)
[2024-09-08 12:13] LABS: Alanine Aminotransferase 14 U/L (0-31); Albumin Level 3.9 g/dL (3.5-5.0); Alkaline Phosphatase 74 U/L (39-117); Anion Gap 12 (12-20); Aspartate Amino Transferase 17 U/L (5-31); Bilirubin Total 0.4 mg/dL (0.0-1.0); Blood Urea Nitrogen 21 mg/dL (9-16); Calcium 9.5 mg/dL (8.4-10.2); Carbon Dioxide 26 mmol/L (22-29); Chloride 108 mmol/L (96-108); Cholesterol 174 mg/dL (<200); Estimated Glomerular Filt Rate > 60; Glucose Random 96 mg/dL (60-115); HDL Cholesterol 64 mg/dL (>40); LDL Cholesterol Calculated 101 mg/dL (<100); Potassium 4.5 mmol/L (3.3-5.1); Sodium 141 mmol/L (135-145); Total Protein 7.2 g/dL (6.5-8.0); Triglycerides 49 mg/dL (<150)
[2024-09-08 12:33] LABS: Folate 15.7 ng/mL (> or = 4.0); Vitamin B12 524 pg/mL (200-900)
[2024-09-08 12:37] LABS: Free T4 (Free Thyroxine) 0.98 ng/dL (0.71-1.85); Thyroid Stimulating Hormone 0.88 uIU/mL (0.32-4.0); Vitamin D 25-OH Total 46.1 ng/mL (>30)
== END 2024-09-08 10:02 | disposition home or self-care (01) ==
LOC: HO.LAB 10:01
PROVIDERS: PCP Internal Medicine; Visit Provider Internal Medicine
DX: R73.01 Impaired fasting glucose (principal); E78.00 Pure hypercholesterolemia, unspecified; Z13.228 Encounter for screening for other metabolic disorders
CPT/HCPCS: 36415; 80053; 80061; 81001; 82306; 82607; 82746; 83036; 84439; 84443; 85025

== ENCOUNTER 2024-09-14 15:36 | Outpatient (AMB) | payer BC, SELFPAY ==
[2024-09-14 16:01] VITALS: BP 126/70; PULSE 78; RESP 16; TEMP 36.6; O2SAT 99; BMI 40.8
--- NOTE | 2024-09-14 16:01 | MHC.PC.OV ---
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 Accompanied by: Self / Same As Patient Allergies oxycodone [From PERCOCET] Allergy (Intermediate, Verified 09/14/24 16:02) DID NOT LIKE THE WAY IT MADE HER FEEL Medication List - Last Reconciled 09/14/24 by Lise Chaudhry MD acetaminophen (Tylenol) PO DAILY PRN alprazolam 0.25 mg PO BEDTIME PRN bupropion HCl SR (Wellbutrin SR) 100 mg PO DAILY 90 days calcium [id number] rm 133 mg calcium -133 unit-67 mg caps PO famotidine 40 mg PO BEDTIME fexofenadine (Roma Allergy) 180 mg PO DAILY lisinopril 10 mg PO DAILY lysine (L-Lysine) 500 mg PO DAILY multivitamin 1 tab PO DAILY tramadol 50 mg PO DAILY 30 days valacyclovir 500 mg PO BID 3 days Tobacco use date assessed: 09/14/24 Dental Screening Dental Screen Date: 09/14/24 Did you have a dental visit in the last 12 months?: Yes Did you have a dental problem in the last 6 months where you did not have access to dental care?: No PFSH Medical History Knee pain, left Sore throat Positive colorectal cancer screening using Cologuard test Generalized anxiety disorder Cervical stenosis of spine Terrien marginal degeneration Colon cancer screening Breast cancer screening by mammogram GERD (gastroesophageal reflux disease) Osteoarthritis, knee Allergic rhinitis Skin cancer Impaired fasting glucose Obesity Hypertension Surgical History Hx of colonoscopy History of elbow surgery History of cholecystectomy History of tubal ligation Family History Father Heart disease Hypertension CVD (cardiovascular disease) Mother Hypertension Sister Multiple sclerosis of brain stem Brother S/P CABG x 1 Daughter In good health Social History Housing: House Alcohol intake: current Alcohol intake frequency: holidays/special occasions only Comment: once a month2 glasses Patient Tobacco Use Status: Never used Tobacco e-Cigarette/Vaping Use: Never Used Second Hand Smoke Exposure: No service: No Current occupational status: employed Cognitive needs: No Hearing needs: No Vision needs: Yes Female Reproductive History Menstrual Age of Menarche: 11 Questionnaire PHQ-9 Over the last 2 weeks, how often have you been bothered by any of the following problems? 1. Little interest or pleasure in doing things: not at all 2. Feeling down, depressed, or hopeless: not at all 3. Trouble falling or staying asleep, or sleeping too much: not at all 4. Feeling tired or having little energy: not at all 5. Poor appetite or overeating: not at all 6. Feeling bad about yourself - or that you are a failure or have let yourself or your family down: not at all 7. Trouble concentrating on things, such as reading the newspaper or watching television: not at all 8. Moving or speaking so slowly that other people could have noticed. Or the opposite - being so fidgety or restless that you have been moving around a lot more than usual: not at all 9. Thoughts that you would be better off or of hurting yourself in some way: not at all Total score: 0 Source: Developed by Drs. Cl Sandoval, Silva Figueroa, Rodolfo Alves and colleagues, with an educational spencer from [employer]. Thrive Questionnaire Date Thrive assessed: 09/14/24 I am a: Patient What is your living situation today?: I have a steady place to live Within the past 12 months, did the food you bought not last and you didn't have the money to get more?: Never true Within the past 12 months, did you worry whether your food would run out before you got money to buy more?: Never true Do you have trouble paying for medicines?: No Do you have trouble getting transportation to medical appointments?: No Do you have trouble paying your heating and electricity bill?: No Do you have trouble taking care of your child, family member or friend?: No Do you have trouble with day-to-day activities such as bathing, preparing meals, shopping, managing finances, etc.?: No Are you currently unemployed and looking for a job?: No Are you interested in more education?: No Please select the resources that you would like help with: None THRIVE Score: 0 AUDIT C Alcohol Use Questionnaire (AUDIT-C) 1. How often do you have a drink containing alcohol?: Monthly or less 2. How many drinks containing alcohol do you have on a typical day when you are drinking?: 1 or 2 3. How often do you have six or more drinks on one occasion?: Never Total Score: 1 ISABELL-7 AMB Questionnaire ISABELL-7 Date ISABELL - 7 assessed: 09/14/24 Feeling nervous, anxious, or on edge: 0 = Not at all Not being able to stop or control worryin = Not at all Worrying too much about different things: 0 = Not at all Trouble relaxin = Not at all Being so restless that it is hard to sit still: 0 = Not at all Becoming easily annoyed or irritable: 0 = Not at all Feeling afraid as if something awful might happen: 0 = Not at all Total ISABELL-7 score (0-4 normal; 5-9 mild; 10-14 moderate; 15-21 severe): 0 Source: Developed by Drs. Cl Sandoval, Silva Figueroa, Rodolfo Alves and colleagues, with an educational spencer from [employer]. Review of Systems Const Denies poor appetite and Denies weakness Eyes Denies no additional complaints ENT Reports Normal hearing present, Denies dizziness, Denies nasal congestion, Denies tinnitus and Denies sore throat Card Denies chest pain, Denies syncope, Denies rapid heart rate and Denies dyspnea Resp Denies cough and Denies dyspnea GI Denies change in stool character, Reports constipation, Denies diarrhea, Denies nausea and Denies vomiting Denies urinary frequency, Denies difficulty voiding and Denies dysuria Neuro Reports Normal hearing present, Denies confusion, Denies dizziness, Denies syncope and Denies weakness Psych Denies confusion Physical exam (Primary Care) Vital Signs: Last Vital Signs Temp 97.8 F 09/14/24 16:01 Pulse 78 09/14/24 16:01 Resp 16 09/14/24 16:01 BP 126/70 09/14/24 16:01 Pulse Ox 99 09/14/24 16:01 Oxygen Delivery Method Room Air 09/14/24 16:01 BMI result Body Mass Index 40.8 Tobacco/Smoking Status: Tobacco use Status Tobacco use date assessed 09/14/24 09/14/24 16:03 Patient Tobacco Use Status Never used Tobacco 09/14/24 16:03 e-Cigarette/Vaping Use Never Used 09/14/24 16:03 PHQ-9: PHQ-9 Score PHQ-9: Total score 0 09/14/24 16:29 Thrive Assessment: Date of Thrive Assessment Date Thrive assessed 09/14/24 09/14/24 16:03 Const General: No confusion Orientation/consciousness: No confusion HENMT Head: Yes normocephalic Ears: external ears normal and TM's normal bilaterally Face and sinus: Yes normal facial exam Mouth: moist mucous membranes Throat: Yes tonsils normal Eyes Conjunctivae: conjunctivae normal Pupils: Equal, round and reactive pupils present and Pupil accommodation reflex normal Direct Ophthalmoscopy: normal light reflex Neck Neck: No lymphadenopathy Thyroid: Thyroid normal Chest Chest palpation & inspection: normal inspection of the chest Resp Effort & Inspection: normal respiratory effort and no audible wheezes Auscultation: clear to auscultation bilaterally, no crackles, no wheezes and lung sounds not diminished Cardio Rate: regular rate Rhythm: regular rhythm Peripheral pulses: radial pulses present and dorsalis pedis present GI Palpation (GI): no masses Auscultation: normal bowel sounds and normoactive bowel sounds Rectal Exam - Female: deferred Skin General skin exam: no rashes or lesions noted Rashes: no rashes Neuro General: No confusion Cranial nerves: Yes Equal, round and reactive pupils present and Yes Normal hearing present Cognition (Neuro): normal cognition Gait exam (Neuro): Normal gait present Motor exam (neuro): 5/5 motor strength present throughout Deep tendon reflexes (DTR's): Right brachioradialis reflex intensity grade: 2+, Left brachioradialis reflex intensity grade: 2+, Right patellar reflex intensity grade: 2+ and Left patellar reflex intensity grade: 2+ Extrem General: No edema Coding Level of Care Code Est Pt Prev Care 40-64y(45511) Diagnoses Annual physical exam Z00.00 Hypertension I10 Impaired fasting glucose R73.01 Obesity, morbid E66.01 Gastroesophageal reflux disease, unspecified whether esophagitis present K21.9 Esophagitis presence: esophagitis presence not specified Generalized anxiety disorder F41.1 Liver cyst K76.89 Assessment & Plan Assessment & Plan (1) Annual physical exam: Code(s): Z00.00 - Encounter for general adult medical examination without abnormal findings Category: Medical Plan: Patient is advised to eat healthy, keep well hydrated, keep active and have adequate sleep. (2) Hypertension: Code(s): I10 - Essential (primary) hypertension Category: Medical Plan: Continue with blood pressure medication. Decrease salt intake and exercise (3) Impaired fasting glucose: Code(s): R73.01 - Impaired fasting glucose Category: Medical Plan: Decrease the amount of carbohydrate intake, pasta, bread, rice and potatoes are all sugar and that is aside from all the sweet stuff, remember that fruits are good but they are Sweet also. (4) Obesity, morbid: Code(s): E66.01 - Morbid (severe) obesity due to excess calories Category: Medical Plan: Diet and exercise (5) GERD (gastroesophageal reflux disease): Code(s): K21.9 - Gastro-esophageal reflux disease without esophagitis Category: Medical Qualifiers: Esophagitis presence: esophagitis presence not specified Qualified Code(s): K21.9 - Gastro-esophageal reflux disease without esophagitis Plan: Avoid the foods that causes that usually spicy foods, tomato products, juices, coffee, soda and foods that your sensitive to. After eating do not lie down, allow 3-4 hours before in lie down. And keep the head of bed above 30 degrees to avoid the acid from going up. (6) Generalized anxiety disorder: Comment: Panic attacks Code(s): F41.1 - Generalized anxiety disorder Category: Medical Plan: Continue with medication as needed on Bue per prior on, alprazolam. (7) Liver cyst: Code(s): K76.89 - Other specified diseases of liver Category: Medical Plan: Advised to get an ultrasound done Plan History of Present Illness The patient is a 64-year-old female presenting for a routine physical examination. She has a history of chronic conditions including hypertension, impaired glucose tolerance, gastroesophageal reflux disease (GERD), generalized anxiety disorder, cervical spinal stenosis, and morbid obesity. Her hypertension is well-managed, and she coordinates glucose tolerance through lifestyle modifications. GERD medication adequately addresses symptoms when taken before bedtime. Anxiety is managed with bupropion and alprazolam. The patient has cervical spinal stenosis with no recent symptom exacerbation. Orthopedic evaluations addressed her hallux valgus deformity. Conservative measures were proposed, with surgery considered in the future. Recent tests indicated normal physiological function, with liver cystic changes necessitating further ultrasonic exploration. Health Maintenance - Blood pressure management plan - Diabetes management plan focusing on diet and exercise - Updated colonoscopy as of June 2023 - Updated mammogram as of September 2023 - Routine vaccines including flu and shingles - Encouragement to maintain health through diet and exercise - Cholesterol management with an LDL of 101 and HDL of 64 Social History - Alcohol consumption is limited to two glasses of wine monthly. - Denies tobacco use. - Engages in regular activity, though no detailed exercise regimen specified. - Consumption of dairy occasionally disrupts gastrointestinal comfort, suggestive of lactose intolerance. - Patient has familial history noteworthy for paternal and fraternal heart issues, no current or significant family cancer history. Review of Systems - Cardiovascular: Denies chest heaviness or discomfort, dizziness, or syncope. - Gastrointestinal: Reports issues with certain dairy products (cream cheese), impacting bowel movements. - Genitourinary: Urinates frequently, with once nightly enuresis. - Neurological: Denies dizziness, nausea, vomiting, fever, or difficulty swallowing. Physical Exam General: Cooperative, healthy appearing, comfortable, no acute distress and well developed Orientation: Patient oriented x3 Limitations: No limitations Head: Normal to inspection Ears: Hearing grossly normal bilaterally Nose: Normal external nose present Face and sinus: Normal facial exam Eyes: Appearance normal, both eyes and all related structures Neck: Normal visual inspection and Yes full ROM Respiratory: Normal respiratory effort and able to speak in complete sentences. Clear to auscultation bilaterally Cardiovascular: Regular rate and rhythm. Normal S1 and S2 GI: Normal to inspection. Soft to palpation and nontender Skin: No rashes or lesions noted Neuro: Patient oriented x3 Extremities: Normal to inspection Results - Labs: Normal complete blood count and renal function, electrolytes within normal limits, BUN slightly elevated suggesting borderline dehydration, normal liver function tests, and cholesterol levels. - Tests and Diagnostics: Chest CT indicating no pulmonary embolism and non-specific liver cysts recommended for ultrasound. Negative chest X-ray. Plan For the management of hypertension, I advised continued adherence to medication and regular monitoring. Impaired glucose tolerance should be managed through ongoing lifestyle modifications alongside medication, as needed. GERD treatment includes taking medication before bed. Future surgical consultation for hallux valgus is part of her care plan. An ultrasound will provide further insight into her liver cyst findings. Continued emphasis on weight management was suggested due to obesity concerns. Her anxiety treatment plan remains with bupropion and alprazolam. Patient was informed and verbally consented to the use of an ambient scribe for clinic note documentation during this visit. Discussion Notes During our consultation, I reviewed the management of her chronic conditions, including hypertension and impaired glucose tolerance, emphasizing current control and future management strategies. I discussed GERD treatment efficacy with night-time medication. Since the patient's orthopedics consultation was recently completed for hallux valgus, we reviewed potential surgical intervention plans for summer. I advised an ultrasound for an in-depth examination of the noted liver cysts, emphasizing its non-emergent nature. I confirmed continuation of her anxiety treatments and encouraged her lifestyle adjustments concerning diet and exercise for further health benefits. We reviewed necessary follow-up for her screening tests, upcoming mammogram, and other health maintenance activities. Patient Instructions - Continue current medication regimens and take GERD medication at night. - Follow a healthy diet and engage in regular physical activity. - Schedule an appointment for a liver ultrasound as discussed. - Monitor blood pressure regularly and report any significant changes. - Consider orthopedic consultation for surgical management of hallux valgus during the summer. - Maintain regular follow-ups for ongoing health maintenance and preventive measures. Orders: Orders US abdomen complete Today K76.89 - Other specified diseases of liver, R79.89 - Other specified abnormal findings of blood chemistry Medications: Refilled valacyclovir 500 mg PO BID 6 tabs 4RF 3 days B00.1 - Herpesviral vesicular dermatitis
== END 2024-09-14 16:47 | disposition home or self-care (01) ==
PROVIDERS: PCP Internal Medicine; Visit Provider Internal Medicine
DX: Z00.00 Encounter for general adult medical examination without abnormal findings (principal); I10 Essential (primary) hypertension; E66.01 Morbid (severe) obesity due to excess calories; Z68.41 Body mass index [BMI] 40.0-44.9, adult; R73.01 Impaired fasting glucose; K21.9 Gastro-esophageal reflux disease without esophagitis; F41.1 Generalized anxiety disorder; K76.89 Other specified diseases of liver

== ENCOUNTER 2024-10-17 08:46 | Outpatient (REF) | payer BC, SELFPAY ==
--- NOTE | ~2024-10-17 | US_ITS ---
CLINICAL HISTORY: R79.89 - Other specified abnormal findings of blood chemistry US abdomen complete. COMPARISON: None Technique: Real time sonographic imaging, including color-flow imaging, was performed by the tire beader maker. Multiple junior sales representative static images were saved for review. FINDINGS: The visualized aorta and inferior vena cava are normal caliber. The visualized portions of the pancreas appear normal. The liver has normal echotexture. Anechoic right lobe hepatic cyst measuring 2.0 x 2.0 x 2.5 cm. Anechoic right lobe hepatic cyst measuring 0.6 x 0.7 x 0.7 cm. Status post cholecystectomy. Common bile duct: 7 mm, within normal limits given cholecystectomy. Right kidney: Cortical medullary differentiation is maintained. Normal color flow by Doppler. No calculus or focal parenchymal abnormality identified. Small extrarenal pelvis present. No hydronephrosis. Right kidney length: 9.9 cm Left kidney: Cortical medullary differentiation is maintained. Normal color flow by Doppler. Parapelvic cysts present in the midportion measuring 1.4 x 1.8 x 1.9 cm. No hydronephrosis. Left kidney length: 10.5 cm The spleen has normal echogenicity. Splenic length: 8.6 cm, normal. No free intraperitoneal fluid identified. IMPRESSION: 1. Simple hepatic cysts present within the right lobe measuring up to 2.5 cm. 2. Small parapelvic renal cysts present on the left measuring up to 1.9 cm. 3. Small extrarenal pelvis present on the right kidney. This document has been electronically signed by: Chilo Sánchez MD on 10/17/2024 16:56:18
== END 2024-10-17 08:47 | disposition home or self-care (01) ==
LOC: HO.US 08:46
PROVIDERS: PCP Internal Medicine; Visit Provider Internal Medicine
DX: R79.89 Other specified abnormal findings of blood chemistry (principal); K76.89 Other specified diseases of liver
CPT/HCPCS: 76700

== ENCOUNTER → 2024-10-17 08:47 | Outpatient (BNV) | payer BC, SELFPAY | PROVIDERS: PCP Internal Medicine; Visit Provider Radiology Diagnostic Radiology | DX: Q44.6 Cystic disease of liver (principal); N20.0 Calculus of kidney | CPT/HCPCS: 76700 ==

== ENCOUNTER 2024-10-30 10:37 | Outpatient (REF) | payer BC, SELFPAY | END 2024-10-30 10:38 | disposition home or self-care (01) | LOC: HO.MAMMO 10:37 | PROVIDERS: PCP Internal Medicine; Visit Provider Internal Medicine | DX: Z12.31 Encounter for screening mammogram for malignant neoplasm of breast (principal) | CPT/HCPCS: 77063; 77067 ==

== ENCOUNTER → 2024-10-30 10:45 | Outpatient (BNV) | payer BC, SELFPAY | PROVIDERS: PCP Internal Medicine; Visit Provider Internal Medicine | DX: Z12.31 Encounter for screening mammogram for malignant neoplasm of breast (principal) | CPT/HCPCS: 77063; 77067 ==

== ENCOUNTER 2025-05-09 15:30 | Outpatient (AMB) | payer BC, SELFPAY ==
--- NOTE | 2025-05-09 15:32 | A.OFFVIS_ITS ---
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 Software Consultant concerns: none. last year. Denies any vaginal dryness or irritation. Attempting to eat a healthy diet with calcium and vitamin D and stays active with exercise-limited after foot surgery. Last pap smear; 2022, negative. Last mammogram; 2024. Colonoscopy is UTD. Denies any family history of breast, ovarian or colon cancer. [facility] Medical History Knee pain, left Sore throat Positive colorectal cancer screening using Cologuard test Generalized anxiety disorder Cervical stenosis of spine Terrien marginal degeneration Colon cancer screening Breast cancer screening by mammogram GERD (gastroesophageal reflux disease) Osteoarthritis, knee Allergic rhinitis Skin cancer Impaired fasting glucose Obesity Hypertension Surgical History (Updated 05/09/25 @ 16:07 by Ara Danielson CNM) Hx of colonoscopy History of elbow surgery History of cholecystectomy History of tubal ligation Family History Father Heart disease Hypertension CVD (cardiovascular disease) Mother Hypertension Sister Multiple sclerosis of brain stem Brother S/P CABG x 1 Daughter In good health Social History Household Members Other:: 03/2024 Housing: House Alcohol intake: current Alcohol intake frequency: holidays/special occasions only Comment: once a month2 glasses Patient Tobacco Use Status: Never used Tobacco e-Cigarette/Vaping Use: Never Used Second Hand Smoke Exposure: No service: No Current occupational status: employed Cognitive needs: No Hearing needs: No Vision needs: Yes Female Reproductive History Menstrual Age of Menarche: 11 control method: permanent sterilization Permanent Sterilization: BTL Total pregnancies: 2 Full term: 2 Number of Living Children: 2 Date of last pap smear: 08/05/22 (neg pap and hpv) Date of Mammogram: 10/30/24 (Birad 1) Review of Systems Const All systems reviewed & are unremarkable except as noted in HPI and below Reports as per HPI Eyes Reports no additional complaints ENT Reports no additional complaints Card Reports no additional complaints Resp Reports no additional complaints GI Reports as per HPI and Reports no additional complaints Reports as per HPI Musc Reports no additional complaints Skin/Breast Reports as per HPI Neuro Reports no additional complaints Psych Reports no additional complaints Endo Reports no additional complaints David/Lymph Reports no additional complaints Aller/Immun Reports no additional complaints Physical Exam Vital Signs: Last Vital Signs BP 110/70 05/09/25 15:33 BMI result Body Mass Index 41.1 Const General: cooperative, healthy appearing, no acute distress, well developed and alert Orientation/consciousness: patient oriented x3 HEENT Head: Yes normal to inspection Eyes General: appearance normal, both eyes and all related structures Neck Neck: Yes normal visual inspection Thyroid: Thyroid normal Chest Chest palpation & inspection: normal inspection of the chest and other (no puckering, dimpling, peau de orange, retraction, discharge, masses) Breast/axilla inspection: normal inspection of the breasts Breast/axilla palpation: normal palpation of the breasts Resp Effort & Inspection: normal respiratory effort GI Inspection: Yes normal to inspection Palpation (GI): Soft to palpation Rectal Exam - Female: deferred General: Yes bladder normal to palpation External Female Exam: normal external appearance and normal appearance of the urethra Speculum Exam - Vagina: normal appearance of the vagina, normal palpation, normal vaginal discharge and vagina atrophic Speculum Exam - Cervix: normal appearance of the cervix and normal palpation Bimanual exam- vagina & uterus: normal bimanual exam, normal palpation, uterine size normal, bladder normal to palpation, normal palpation and non-tender Bimanual Exam- Adnexa, other: no masses Skin General skin exam: no rashes or lesions noted Rashes: no rashes Neuro General: patient oriented x3 Cognition (Neuro): normal cognition Extrem General: Yes normal to inspection Psych Attitude: cooperative Thought process: Normal thought process present Assessment & Plan Assessment & Plan (1) Encounter for well woman exam with routine gynecological exam: Code(s): Z01.419 - Encounter for gynecological examination (general) (routine) without abnormal findings Category: Medical Plan Discussed: Current recommendations for pap smears per ASCCP guidelines. Breast awareness, periodic self breast exams and yearly mammogram. Maintain a healthy lifestyle, well balanced diet including Calcium 1,200 mg and Vitamin D 600 IU daily, and routine exercise. Contact the office with any postmenopausal bleeding. Patient verbalizes understanding and agrees to the plan of care. She was given opportunity to ask questions and all questions were answered to the best of my ability. RTO in 1 year for annual scientist electronics exam. This note is constructed using voice recognition software. While every effort has been made to ensure accuracy, advanced practice nurse errors may have been included. Coding Level of Care Code Est Pt Prev Care 40-64y(72564) Diagnoses Encounter for well woman exam with routine gynecological exam Z01.419
[2025-05-09 15:33] VITALS: BP 110/70; BMI 41.1
--- OUTSIDE RECORDS SUMMARY | 2025-05-09 18:02 | XMS_ITS | Clinical Summary ---
Author Organization [facility] Address [address] [place] [address] Phone Care Team Providers Care Chief Deputy Coroner Name Role Phone Lise Chaudhry MD Primary Care Provider [phone] Social History Tobacco Use Types Packs/Day Years Used Date Smoking Tobacco: Never Assessed Comments Unknown Sex and Gender Information Value Date Recorded Sex Assigned at Not on file Legal Sex Female 11:56 AM EST Gender Identity Not on file Sexual Orientation Not on file Plan of Treatment Not on file Medical Devices Not on file [facility] [place] [address] [place] [address] HMO POS [facility] HMO POS [facility] [place] [address] [place] [address] HMO POS [facility] [place] [address] [place] [address] [facility] Care Teams Chief Deputy Coroner Relationship Specialty Start Date End Date Lise Chaudhry MD [address] [place] [address] [address] [place] [phone] PCP - General Internal Medicine 09/13/18 Additional Source Comments The information contained in this document represents components of the legal health record. It is not the complete legal health record.[facility]
== END 2025-05-09 16:16 | disposition home or self-care (01) ==
LOC: HO.HWS 15:30
PROVIDERS: PCP Internal Medicine; Visit Provider Advanced Practice Midwife
DX: Z01.419 Encounter for gynecological examination (general) (routine) without abnormal findings (principal)
CPT/HCPCS: 99396; 99459